=== PATIENT | female | born 2000 | race African-American/Black ===

== ENCOUNTER 2022-02-28 12:47 | Inpatient (IN) | payer OTHER, MEDICAID, SELFPAY ==
[2022-02-28] VITALS (16 sets, daily range): BP systolic 96–123; BP diastolic 57–80; PULSE 89–131; RESP 9–20; TEMP 36.2–36.8; O2SAT 97–99; BMI 22.8; BMI 23.4
[2022-02-28 13:51] LABS: Add Manual Diff / Slide Review NO; Basophils Absolute Auto 0 /uL (0-100); Basophils Percent Auto 0.3 % (0-2); Eosinophils Absolute Auto 0 /uL (0-450); Eosinophils Percent Auto 0.2 % (2-4); Hematocrit 25.2 % (36-46); Hemoglobin 8.1 g/dL (12.0-16.0); Lymphocytes Absolute Auto 2200 /uL (1100-4500); Lymphocytes Percent Auto 20.3 % (25-40); Mean Corpuscular HGB Conc 32.3 % (30-36); Mean Corpuscular Hemoglobin 23.9 PG (26-34); Monocytes Absolute Auto 1100 /uL (0-900); Monocytes Percent Auto 10.6 % (3-14); Neutrophils Absolute Auto 7300 /uL (1500-7000); Neutrophils Percent Auto 68.6 % (50-75); Platelet Count 489 X10^3/uL (150-400); Red Blood Cell Count 3.41 X10^6/uL (4.0-5.2); Red Cell Distribution Width 17.7 % (11.6-14.8); White Blood Cell Count 10.7 X10^3/uL (4.5-11.0)
[2022-02-28 14:03] LABS: INR 1.2 (0.9-1.3)
[2022-02-28 14:05] LABS: PTT Partial Thromboplastin Tim 22 SECONDS (26-36)
[2022-02-28 14:07] LABS: Alanine Aminotransferase 13 IU/L (<35); Albumin 3.4 g/dL (3.5-5.0); Albumin Globulin Ratio 0.7 (1.0-2.8); Alkaline Phosphatase 61 U/L (38-126); Aspartate Aminotransferase 18 IU/L (14-36); BUN Creatinine Ratio 9.4 (6-22); Bilirubin Total 0.3 mg/dL (0.2-1.3); Blood Urea Nitrogen 5 mg/dL (7-17); Calcium 8.5 mg/dL (8.4-10.2); Carbon Dioxide 27 mmol/L (22-32); Chloride 104 mmol/L (98-107); Estimated Glomerular Filt Rate > 60 mL/min (>60); Globulin 4.8 g/dL (1.7-4.1); Glucose 97 mg/dL (70-100); HEMOLYSIS < 15 (0-50); Potassium 3.7 mmol/L (3.4-5.1); Sodium 140 mmol/L (137-145); Total Protein 8.2 g/dL (6.3-8.2)
--- NOTE | 2022-02-28 14:34 | PC.NURSE ---
pt states she has history of ulcerative colitis. she was at [facility] 2 days ago and was given a blood transfusion and steriods. she states since then she has been getting worse. still has bright red blood and dark red blood in stool. she states i have lost over 10lbs in the last few days i still go to the bathroom even when i dont eat nothing makes this better.
--- NOTE | 2022-02-28 14:53 | DI.CT.S_ITS ---
PROCEDURE: CT ABDOMEN PELVIS W CON INDICATIONS: rectal bleeding; hx UC TECHNIQUE: After the administration of IV contrast, axial sections were acquired from the lung bases to the pubic symphysis. Coronal and sagittal reformats were performed. For radiation dose reduction, the following was used: automated exposure control, adjustment of mA and/or kV according to patient size. COMPARISON: None. FINDINGS: Image quality: Portions of the lower pelvis are suboptimally evaluated secondary to metallic streak artifact from bilateral femoral fixation hardware. Lung bases: Unremarkable. Heart: No significant findings. ABDOMEN: Liver: Liver is enlarged measuring 20.1 cm. Gallbladder: Unremarkable. Biliary ducts: Unremarkable. Pancreas: Unremarkable. Spleen: Unremarkable. Adrenal Glands: Unremarkable. Kidneys and Ureters: Unremarkable. Stomach and Bowel: Stomach, small bowel loops, and colon are nonobstructive. Colon demonstrates diffuse thickening within the distal transverse and most notable descending and sigmoid colon. Pericolonic inflammatory changes present. No visualized diverticula. Mild dependent fluid. Ventral Wall: Fat containing ventral hernia. Abdominal Nodes: No retroperitoneal or mesenteric adenopathy by size criteria. Vessels: Aorta and inferior vena cava are normal in size. PELVIS: Pelvic Organs: Unremarkable. Bladder: Unremarkable. Pelvic Nodes: No enlarged lymph nodes. Miscellaneous: No inguinal hernias are seen. Bones: Unremarkable. IMPRESSION: Left colonic colitis secondary to infection/inflammation or potentially ischemia. No associated abscess. Dictated by: Sheryl Mabry M.D. on 02/28/2022 at 16:30 Approved by: Sheryl Mabry M.D. on 02/28/2022 at 16:33
[2022-02-28] MEDS: MORPHINE 4 MG/ML INJ IV ×2 (15:03→19:54)
--- NOTE | 2022-02-28 16:13 | CM.SWNOTE ---
Pt is 21 year old female with hx of ulcerative colitis who presents with GI bleed. Pt has Medicaid and no PCP. SW was consulted to help pt establish PCP. RONNA found closest available [facility] is in [facility]. RONNA scheduled pt with Dr. Summer Rae on Thursday, March 10 at 10:45am. RONNA provided pt with contact information, address, and appointment information. Pt is agreeable to see this PCP. GROVER Booker
--- NOTE | 2022-02-28 17:03 | ED.GIBLEED ---
HPI - GI Bleed <Daniel Mcguire PA-C - Last Filed: 02/28/22 19:37> General Chief complaint: GI Bleed Stated complaint: blood in stools sent [facility] Time Seen by Provider: 02/28/22 14:24 Source: patient Mode of arrival: Ambulatory History of Present Illness HPI Narrative: 21-year-old female with past medical history ulcerative colitis presents to the ED with 1 week of worsening lower abdominal pain, rectal bleed. Patient states she was diagnosed with ulcerative colitis about 3 years ago, did not receive any treatment for it since it was not severe enough. Patient states that she started experiencing rectal bleeding, lower abdominal pain, pain with defecation 1 week ago. Patient was seen at the [facility] emergency department 2 days ago, received a transfusion due to low hemoglobin, was started on a prednisone taper and discharged home. Patient states that her symptoms have worsened over the last 2 days despite taking the prednisone. Patient denies fever, chills, nausea, vomiting, chest pain, shortness of breath, dysuria, lightheadedness, dizziness, syncope. Related Data Home Medications Medication Instructions Recorded Confirmed ferrous sulfate 325 mg (65 mg 325 mg PO DAILY 02/28/22 02/28/22 iron) tablet (FeroSul) Previous Rx's Medication Instructions Recorded mesalamine 1.2 gram tablet,delayed 2.4 g PO DAILY 4 weeks #60 tabs 03/05/22 release (Lialda) oxycodone 10 mg tablet 10 mg PO Q4H PRN Pain, Severe 03/05/22 (7-10) #30 tabs pantoprazole 40 mg tablet,delayed 40 mg PO DAILY #30 tabs 03/05/22 release (Protonix) prednisone 20 mg tablet See Rx Instructions .Route 03/05/22 .COMPLEX #90 tabs Allergies Allergy/AdvReac Type Severity Reaction Status Date / Time ethinyl estradiol AdvReac Intermediate Swelling Verified 03/01/22 14:11 [From Loestrin 1.5 (21)] of Lip/Tongue/Throat norethindrone acetate AdvReac Intermediate Swelling Verified 03/01/22 14:11 [From Loestrin 1.5/30 (21)] of Lip/Tongue/Throat Review of Systems <Daniel Mcguire PA-C - Last Filed: 02/28/22 19:37> Review of Systems ROS Unobtainable: All systems reviewed & are unremarkable except as noted in HPI and below Constitutional Constitutional: Denies chills, Denies fatigue, Denies fever(s), Denies frequent falls, Denies lethargy and Denies weakness Eyes Eyes: Denies change in vision, Denies eye discharge, Denies irritation and Denies loss of vision ENT Ears, Nose, Mouth, and Throat: Denies change in voice, Denies dizziness, Denies neck pain, Denies sore throat and Denies throat swelling Cardiovascular Cardiovascular: Denies chest pain, Denies irregular heart rhythm, Denies lightheadedness, Denies palpitations, Denies dyspnea, Denies dyspnea on exertion and Denies orthopnea Respiratory Respiratory: Denies cough, Denies dyspnea, Denies dyspnea on exertion and Denies wheezing Gastrointestinal Gastrointestinal: Reports abdominal pain, Reports hematochezia, Denies change in bowel habits, Reports cramping, Denies diarrhea, Denies nausea and Denies vomiting Genitourinary Genitourinary: Denies hematuria, Denies flank pain, Denies urinary incontinence and Denies urinary urgency Musculoskeletal Musculoskeletal: Denies back pain, Denies muscle weakness, Denies neck pain, Denies numbness and Denies tingling Integumentary/Breasts Skin/Breast: Denies pruritus, Denies erythema, Denies rash and Denies wounds Neurologic Neurologic: Denies behavioral changes, Denies confusion, Denies dizziness, Denies frequent falls, Denies loss of vision, Denies numbness, Denies tingling and Denies weakness Psychiatric Psychiatric: Denies anxiety, Denies behavioral changes, Denies confusion, Denies depression, Denies homicidal ideation and Denies suicidal ideation Endocrine Endocrine: Denies fatigue, Denies flushing and Denies palpitations Hematologic/Lymphatic Hematologic/Lymphatic: Denies easy bruising Allergic/Immunologic Allergic/Immunologic: Denies urticaria, Denies throat swelling and Denies wheezing Patient History <Daniel Mcguire PA-C - Last Filed: 02/28/22 19:37> Medical History (Updated 03/01/22 @ 13:27 by Glory Zepeda MD) Anemia Ulcerative colitis Surgical History (Updated 02/28/22 @ 20:08 by Bry Tamayo MD) History of hip surgery Family History (Updated 02/28/22 @ 20:08 by Bry Tamayo MD) Mother Diabetes mellitus Father Brain aneurysm Social History household members: family and children Smoking Status: Current every day smoker alcohol intake: current Smoking Status: Current every day smoker tobacco type: vaping alcohol intake frequency: holidays/special occasions only Substance Use Type: marijuana Exam <Daniel Mcguire PA-C - Last Filed: 02/28/22 19:37> Narrative Exam Narrative: Const General:?cooperative, healthy appearing and comfortable [facility] Head:?normal to inspection Ears:?hearing grossly normal bilaterally Nose:?external nose normal Face and sinus:?normal facial exam and sinuses nontender Mouth:?oral mucosae normal Throat:?posterior oropharynx normal Eyes General:?appearance normal, both eyes and all related structures Neck Neck:?normal visual inspection and no lymphadenopathy noted Resp Effort & Inspection:?normal respiratory effort Auscultation:?clear to auscultation bilaterally Cardio Rate:?regular rate Rhythm:?regular rhythm GI Abdomen is soft, nondistended. Abdomen is tender to palpation in the lower quadrants. Neuro General:?patient alert, patient awake and patient oriented x3 Initial Vital Signs Initial Vital Signs: Vital Signs Temperature 97.1 F L 02/28/22 13:00 Pulse Rate 131 H 02/28/22 13:00 Respiratory Rate 14 02/28/22 13:00 Blood Pressure 119/72 02/28/22 13:00 Pulse Oximetry 99 02/28/22 13:00 Oxygen Delivery Method 02/28/22 13:00 <Simeon Vergara MD - Last Filed: 03/06/22 09:59> Initial Vital Signs Initial Vital Signs: Vital Signs Temperature 97.1 F L 02/28/22 13:00 Pulse Rate 131 H 02/28/22 13:00 Respiratory Rate 14 02/28/22 13:00 Blood Pressure 119/72 02/28/22 13:00 Pulse Oximetry 99 02/28/22 13:00 Oxygen Delivery Method 02/28/22 13:00 Course <Daniel Mcguire PA-C - Last Filed: 02/28/22 19:37> Orders Ordered: Discontinued Medications Acetaminophen (Acetaminophen 325 Mg Tablet) 975 mg PO NOW ONE Stop: 02/28/22 17:12 Last Admin: 02/28/22 17:36 Dose: 975 mg Documented By: MITCH Acetaminophen (Acetaminophen 325 Mg Tablet) 975 mg PO Q6H [facility] Last Admin: 03/02/22 19:53 Dose: 975 mg Documented By: Admin: 03/02/22 13:05 Dose: 975 mg Documented By: Admin: 03/02/22 08:53 Dose: 975 mg Documented By: Admin: 03/02/22 01:33 Dose: Not Given Documented By: Admin: 03/01/22 19:42 Dose: 975 mg Documented By: Admin: 03/01/22 14:11 Dose: 975 mg Documented By: BOYD Acetaminophen (Acetaminophen 325 Mg Tablet) 975 mg PO Q8H [facility] Last Admin: 03/05/22 06:09 Dose: Not Given Documented By: Admin: 03/04/22 20:17 Dose: Not Given Documented By: Admin: 03/04/22 13:07 Dose: Not Given Documented By: Admin: 03/04/22 05:00 Dose: 975 mg Documented By: Admin: 03/03/22 17:35 Dose: 975 mg Documented By: Admin: 03/03/22 14:01 Dose: Not Given Documented By: Admin: 03/03/22 03:50 Dose: 975 mg Documented By: RASHMI Hydrocodone Bitart/Acetaminophen (Hydrocodone/Acet 5/325 Tablet) 1 tab PO Q4H PRN PRN Reason: Pain, Moderate (4-6) Last Admin: 03/01/22 08:03 Dose: 1 tab Documented By: Admin: 03/01/22 03:15 Dose: 1 tab Documented By: NESHA Diphenhydramine HCl (Diphenhydramine 50 Mg/Ml Vial) 25 mg IV BEDTIME PRN PRN Reason: Insomnia Last Admin: 03/04/22 20:16 Dose: 25 mg Documented By: ZACHARY Enoxaparin Sodium (Enoxaparin 40 Mg/0.4 Ml Syringe) 40 mg SUBCUT DAILY [facility] Last Admin: 03/05/22 09:26 Dose: Not Given Documented By: Admin: 03/04/22 08:40 Dose: 40 mg Documented By: Admin: 03/03/22 14:01 Dose: 40 mg Documented By: LDV Ferrous Sulfate (Ferrous Sulfate 325 Mg Tablet) 325 mg PO DAILY [facility] Last Admin: 03/05/22 09:24 Dose: 325 mg Documented By: Admin: 03/04/22 08:40 Dose: 325 mg Documented By: Admin: 03/03/22 09:58 Dose: 325 mg Documented By: Admin: 03/02/22 08:54 Dose: 325 mg Documented By: Admin: 03/01/22 10:19 Dose: 325 mg Documented By: BOYD Hydromorphone HCl (Hydromorphone 0.5 Mg Inj) 0.5 mg IV Q4H PRN PRN Reason: Pain, Moderate (4-6) Last Admin: 03/03/22 23:24 Dose: 0.5 mg Documented By: Admin: 03/03/22 14:02 Dose: 0.5 mg Documented By: Admin: 03/02/22 13:04 Dose: 0.5 mg Documented By: Admin: 03/02/22 08:53 Dose: 0.5 mg Documented By: Admin: 03/01/22 14:12 Dose: 0.5 mg Documented By: BOYD Hydromorphone HCl (Hydromorphone 1 Mg Inj) 1 mg IV Q4H PRN PRN Reason: Pain, Severe (7-10) Last Admin: 03/02/22 23:48 Dose: 1 mg Documented By: RASHMI Piperacillin Sod/Tazobactam (Sod 4.5 gm/ Sodium Chloride) 100 mls @ 200 mls/hr IV NOW ONE Stop: 02/28/22 19:17 Last Infusion: 02/28/22 21:05 Dose: 0 mls/hr Documented By: Admin: 02/28/22 19:54 Dose: 200 mls/hr Documented By: SILVESTRE Dextrose/Sodium Chloride (Dextrose 5%-0.9% Ns) 1,000 mls @ 100 mls/hr IV CONT [facility] Last Admin: 03/01/22 08:19 Dose: 100 mls/hr Documented By: Infusion: 03/01/22 08:19 Dose: 100 mls/hr Documented By: Admin: 02/28/22 22:20 Dose: 100 mls/hr Documented By: NESHA Piperacillin Sod/Tazobactam (Sod 3.375 gm/ Sodium Chloride) 100 mls @ 25 mls/hr IV Q8H [facility] Last Infusion: 03/02/22 10:32 Dose: 0 mls/hr Documented By: Admin: 03/02/22 08:55 Dose: 25 mls/hr Documented By: Infusion: 03/02/22 04:33 Dose: 0 mls/hr Documented By: Admin: 03/01/22 23:59 Dose: 25 mls/hr Documented By: Infusion: 03/01/22 20:46 Dose: 25 mls/hr Documented By: Admin: 03/01/22 16:46 Dose: 25 mls/hr Documented By: Infusion: 03/01/22 15:16 Dose: 0 mls/hr Documented By: Admin: 03/01/22 08:03 Dose: 150 mls/hr Documented By: Infusion: 03/01/22 04:49 Dose: 0 mls/hr Documented By: Admin: 03/01/22 00:36 Dose: 25 mls/hr Documented By: NESHA Sodium Chloride (Normal Saline 0.9%) 1,000 mls @ 100 mls/hr IV CONT [facility] Last Admin: 03/01/22 14:22 Dose: 100 mls/hr Documented By: BOYD Lorazepam (Lorazepam 0.5 Mg Tablet) 0.5 mg PO Q4HR PRN PRN Reason: Anxiety Last Admin: 03/04/22 20:02 Dose: 0.5 mg Documented By: Admin: 03/02/22 23:58 Dose: 0.5 mg Documented By: Admin: 03/02/22 08:54 Dose: 0.5 mg Documented By: Admin: 03/01/22 14:12 Dose: 0.5 mg Documented By: BOYD Mesalamine (Mesalamine 800 Mg Tablet.Dr) 1,600 mg PO TID [facility] Last Admin: 03/05/22 09:24 Dose: 1,600 mg Documented By: Admin: 03/04/22 20:03 Dose: 1,600 mg Documented By: Admin: 03/04/22 16:40 Dose: 1,600 mg Documented By: Admin: 03/04/22 08:40 Dose: 1,600 mg Documented By: Admin: 03/03/22 21:04 Dose: 1,600 mg Documented By: Admin: 03/03/22 16:33 Dose: 1,600 mg Documented By: Admin: 03/03/22 09:58 Dose: 1,600 mg Documented By: Admin: 03/02/22 23:46 Dose: 1,600 mg Documented By: Admin: 03/02/22 18:09 Dose: 1,600 mg Documented By: BV Methylprednisolone (Methylprednisolone 125 Mg/2 Ml Vial) 60 mg IV Q6H [facility] Last Admin: 03/01/22 14:12 Dose: 60 mg Documented By: Admin: 03/01/22 08:26 Dose: 60 mg Documented By: Admin: 03/01/22 03:15 Dose: 60 mg Documented By: Admin: 02/28/22 21:42 Dose: 60 mg Documented By: SILVESTRE Methylprednisolone (Methylprednisolone 125 Mg/2 Ml Vial) 20 mg IV Q8H [facility] Last Admin: 03/02/22 09:00 Dose: 20 mg Documented By: Admin: 03/01/22 22:50 Dose: 20 mg Documented By: Admin: 03/01/22 16:46 Dose: 20 mg Documented By: BOYD Methylprednisolone (Methylprednisolone 125 Mg/2 Ml Vial) 125 mg IV Q6H [facility] Last Admin: 03/03/22 14:00 Dose: 125 mg Documented By: Admin: 03/03/22 05:46 Dose: 125 mg Documented By: Admin: 03/02/22 23:46 Dose: 125 mg Documented By: Admin: 03/02/22 18:13 Dose: 125 mg Documented By: BOYD Methylprednisolone (Methylprednisolone 125 Mg/2 Ml Vial) 105 mg IV NOW ONE Stop: 03/02/22 14:27 Last Admin: 03/02/22 18:28 Dose: Not Given Documented By: Admin: 03/02/22 17:58 Dose: Not Given Documented By: BOYD Methylprednisolone (Methylprednisolone 125 Mg/2 Ml Vial) 125 mg IV Q8H [facility] Last Admin: 03/05/22 00:49 Dose: 125 mg Documented By: Admin: 03/04/22 16:40 Dose: 125 mg Documented By: Admin: 03/04/22 08:40 Dose: 125 mg Documented By: Admin: 03/04/22 01:17 Dose: 125 mg Documented By: Admin: 03/03/22 17:35 Dose: 125 mg Documented By: LAY Methylprednisolone (Methylprednisolone 125 Mg/2 Ml Vial) 125 mg IV BID [facility] Last Admin: 03/05/22 09:25 Dose: 125 mg Documented By: MESSI Morphine Sulfate (Morphine 4 Mg/Ml Inj) 4 mg IV NOW ONE Stop: 02/28/22 14:53 Last Admin: 02/28/22 15:03 Dose: 4 mg Documented By: NR Morphine Sulfate (Morphine 4 Mg/Ml Inj) 4 mg IV NOW ONE Stop: 02/28/22 19:33 Last Admin: 02/28/22 19:54 Dose: 4 mg Documented By: SILVESTRE Naloxone HCl (Naloxone 0.4 Mg/Ml Vial) 0.2 mg IV Q2MIN PRN PRN Reason: Opiate Reversal Naloxone HCl (Naloxone 0.4 Mg/Ml Vial) 0.2 mg IV Q2MIN PRN PRN Reason: Opiate Reversal Ondansetron HCl (Ondansetron 4 Mg/2 Ml Inj) 4 mg IV NOW PRN PRN Reason: Nausea And Vomiting Last Admin: 03/03/22 07:46 Dose: 4 mg Documented By: LAY Oxycodone HCl (Oxycodone Ir 5 Mg Tablet) 5 mg PO Q3H PRN PRN Reason: Pain, Moderate (4-6) Last Admin: 03/03/22 09:58 Dose: 5 mg Documented By: LAY Oxycodone HCl (Oxycodone Ir 10 Mg Tablet) 10 mg PO Q3H PRN PRN Reason: Pain, Severe (7-10) Last Admin: 03/05/22 00:49 Dose: 10 mg Documented By: Admin: 03/04/22 06:49 Dose: 10 mg Documented By: Admin: 03/03/22 21:06 Dose: 10 mg Documented By: Admin: 03/03/22 05:51 Dose: 10 mg Documented By: Admin: 03/02/22 18:14 Dose: 10 mg Documented By: Admin: 03/02/22 04:36 Dose: 10 mg Documented By: Admin: 03/01/22 19:42 Dose: 10 mg Documented By: OW Pantoprazole Sodium (Pantoprazole 40 Mg Vial) 80 mg IV NOW ONE Stop: 02/28/22 13:08 Last Admin: 02/28/22 15:07 Dose: Not Given Documented By: NR Sodium Chloride (Sodium Chloride 0.9% Flush) 10 ml IV PRN PRN PRN Reason: Flush Last Admin: 03/04/22 01:17 Dose: 10 ml Documented By: Admin: 03/03/22 23:29 Dose: 10 ml Documented By: Admin: 03/03/22 05:46 Dose: 10 ml Documented By: RASHMI Sodium Chloride (Sodium Chloride 0.9% Flush) 10 ml IV BID [facility] Last Admin: 03/05/22 09:25 Dose: 10 ml Documented By: Admin: 03/04/22 20:17 Dose: 10 ml Documented By: Admin: 03/04/22 08:41 Dose: 10 ml Documented By: Admin: 03/03/22 21:04 Dose: 10 ml Documented By: Admin: 03/03/22 09:50 Dose: Not Given Documented By: Admin: 03/02/22 23:47 Dose: 10 ml Documented By: RASHMI Vital Signs Vital signs: Vital Signs - 8 hr 02/28/22 13:00 02/28/22 13:34 02/28/22 13:35 Temperature 97.1 F L Pulse Rate 131 H 95 H Respiratory Rate 14 17 Blood Pressure 119/72 111/71 Pulse Oximetry 99 98 Oxygen Delivery Method Room Air 02/28/22 13:35 02/28/22 13:45 02/28/22 14:00 Temperature Pulse Rate 97 H 96 H Respiratory Rate 14 20 Blood Pressure 96/59 L Pulse Oximetry 98 98 Oxygen Delivery Method 02/28/22 14:00 02/28/22 14:15 02/28/22 14:30 Temperature Pulse Rate 93 H 97 H Respiratory Rate 14 17 Blood Pressure 96/57 L Pulse Oximetry 98 98 Oxygen Delivery Method 02/28/22 14:30 02/28/22 14:45 02/28/22 15:00 Temperature Pulse Rate 97 H 98 H Respiratory Rate 13 15 Blood Pressure 123/62 Pulse Oximetry 97 99 Oxygen Delivery Method 02/28/22 15:00 02/28/22 15:15 02/28/22 15:30 Temperature Pulse Rate 89 97 H Respiratory Rate 9 L 19 Blood Pressure 111/78 Pulse Oximetry 99 97 Oxygen Delivery Method Room Air 02/28/22 15:30 02/28/22 15:45 02/28/22 16:00 Temperature Pulse Rate 95 H 92 H 93 H Respiratory Rate 9 L 13 13 Blood Pressure Pulse Oximetry 99 99 99 Oxygen Delivery Method 02/28/22 16:15 02/28/22 16:47 Temperature Pulse Rate 90 93 H Respiratory Rate 13 18 Blood Pressure 111/78 Pulse Oximetry 98 99 Oxygen Delivery Method Room Air Room Air <Simeon Vergara MD - Last Filed: 03/06/22 09:59> Orders Ordered: Discontinued Medications Acetaminophen (Acetaminophen 325 Mg Tablet) 975 mg PO NOW ONE Stop: 02/28/22 17:12 Last Admin: 02/28/22 17:36 Dose: 975 mg Documented By: MITCH Acetaminophen (Acetaminophen 325 Mg Tablet) 975 mg PO Q6H [facility] Last Admin: 03/02/22 19:53 Dose: 975 mg Documented By: Admin: 03/02/22 13:05 Dose: 975 mg Documented By: Admin: 03/02/22 08:53 Dose: 975 mg Documented By: Admin: 03/02/22 01:33 Dose: Not Given Documented By: Admin: 03/01/22 19:42 Dose: 975 mg Documented By: Admin: 03/01/22 14:11 Dose: 975 mg Documented By: BOYD Acetaminophen (Acetaminophen 325 Mg Tablet) 975 mg PO Q8H [facility] Last Admin: 03/05/22 06:09 Dose: Not Given Documented By: Admin: 03/04/22 20:17 Dose: Not Given Documented By: Admin: 03/04/22 13:07 Dose: Not Given Documented By: Admin: 03/04/22 05:00 Dose: 975 mg Documented By: Admin: 03/03/22 17:35 Dose: 975 mg Documented By: Admin: 03/03/22 14:01 Dose: Not Given Documented By: Admin: 03/03/22 03:50 Dose: 975 mg Documented By: RASHMI Hydrocodone Bitart/Acetaminophen (Hydrocodone/Acet 5/325 Tablet) 1 tab PO Q4H PRN PRN Reason: Pain, Moderate (4-6) Last Admin: 03/01/22 08:03 Dose: 1 tab Documented By: Admin: 03/01/22 03:15 Dose: 1 tab Documented By: NESHA Diphenhydramine HCl (Diphenhydramine 50 Mg/Ml Vial) 25 mg IV BEDTIME PRN PRN Reason: Insomnia Last Admin: 03/04/22 20:16 Dose: 25 mg Documented By: ZACHARY Enoxaparin Sodium (Enoxaparin 40 Mg/0.4 Ml Syringe) 40 mg SUBCUT DAILY [facility] Last Admin: 03/05/22 09:26 Dose: Not Given Documented By: Admin: 03/04/22 08:40 Dose: 40 mg Documented By: Admin: 03/03/22 14:01 Dose: 40 mg Documented By: LAY Ferrous Sulfate (Ferrous Sulfate 325 Mg Tablet) 325 mg PO DAILY [facility] Last Admin: 03/05/22 09:24 Dose: 325 mg Documented By: Admin: 03/04/22 08:40 Dose: 325 mg Documented By: Admin: 03/03/22 09:58 Dose: 325 mg Documented By: Admin: 03/02/22 08:54 Dose: 325 mg Documented By: Admin: 03/01/22 10:19 Dose: 325 mg Documented By: BOYD Hydromorphone HCl (Hydromorphone 0.5 Mg Inj) 0.5 mg IV Q4H PRN PRN Reason: Pain, Moderate (4-6) Last Admin: 03/03/22 23:24 Dose: 0.5 mg Documented By: Admin: 03/03/22 14:02 Dose: 0.5 mg Documented By: Admin: 03/02/22 13:04 Dose: 0.5 mg Documented By: Admin: 03/02/22 08:53 Dose: 0.5 mg Documented By: Admin: 03/01/22 14:12 Dose: 0.5 mg Documented By: BOYD Hydromorphone HCl (Hydromorphone 1 Mg Inj) 1 mg IV Q4H PRN PRN Reason: Pain, Severe (7-10) Last Admin: 03/02/22 23:48 Dose: 1 mg Documented By: RASHMI Piperacillin Sod/Tazobactam (Sod 4.5 gm/ Sodium Chloride) 100 mls @ 200 mls/hr IV NOW ONE Stop: 02/28/22 19:17 Last Infusion: 02/28/22 21:05 Dose: 0 mls/hr Documented By: Admin: 02/28/22 19:54 Dose: 200 mls/hr Documented By: SILVESTRE Dextrose/Sodium Chloride (Dextrose 5%-0.9% Ns) 1,000 mls @ 100 mls/hr IV CONT [facility] Last Admin: 03/01/22 08:19 Dose: 100 mls/hr Documented By: Infusion: 03/01/22 08:19 Dose: 100 mls/hr Documented By: Admin: 02/28/22 22:20 Dose: 100 mls/hr Documented By: NESHA Piperacillin Sod/Tazobactam (Sod 3.375 gm/ Sodium Chloride) 100 mls @ 25 mls/hr IV Q8H [facility] Last Infusion: 03/02/22 10:32 Dose: 0 mls/hr Documented By: Admin: 03/02/22 08:55 Dose: 25 mls/hr Documented By: Infusion: 03/02/22 04:33 Dose: 0 mls/hr Documented By: Admin: 03/01/22 23:59 Dose: 25 mls/hr Documented By: Infusion: 03/01/22 20:46 Dose: 25 mls/hr Documented By: Admin: 03/01/22 16:46 Dose: 25 mls/hr Documented By: Infusion: 03/01/22 15:16 Dose: 0 mls/hr Documented By: Admin: 03/01/22 08:03 Dose: 150 mls/hr Documented By: Infusion: 03/01/22 04:49 Dose: 0 mls/hr Documented By: Admin: 03/01/22 00:36 Dose: 25 mls/hr Documented By: NESHA Sodium Chloride (Normal Saline 0.9%) 1,000 mls @ 100 mls/hr IV CONT [facility] Last Admin: 03/01/22 14:22 Dose: 100 mls/hr Documented By: BOYD Lorazepam (Lorazepam 0.5 Mg Tablet) 0.5 mg PO Q4HR PRN PRN Reason: Anxiety Last Admin: 03/04/22 20:02 Dose: 0.5 mg Documented By: Admin: 03/02/22 23:58 Dose: 0.5 mg Documented By: Admin: 03/02/22 08:54 Dose: 0.5 mg Documented By: Admin: 03/01/22 14:12 Dose: 0.5 mg Documented By: BOYD Mesalamine (Mesalamine 800 Mg Tablet.Dr) 1,600 mg PO TID [facility] Last Admin: 03/05/22 09:24 Dose: 1,600 mg Documented By: Admin: 03/04/22 20:03 Dose: 1,600 mg Documented By: Admin: 03/04/22 16:40 Dose: 1,600 mg Documented By: Admin: 03/04/22 08:40 Dose: 1,600 mg Documented By: Admin: 03/03/22 21:04 Dose: 1,600 mg Documented By: Admin: 03/03/22 16:33 Dose: 1,600 mg Documented By: Admin: 03/03/22 09:58 Dose: 1,600 mg Documented By: Admin: 03/02/22 23:46 Dose: 1,600 mg Documented By: Admin: 03/02/22 18:09 Dose: 1,600 mg Documented By: BOYD Methylprednisolone (Methylprednisolone 125 Mg/2 Ml Vial) 60 mg IV Q6H [facility] Last Admin: 03/01/22 14:12 Dose: 60 mg Documented By: Admin: 03/01/22 08:26 Dose: 60 mg Documented By: Admin: 03/01/22 03:15 Dose: 60 mg Documented By: Admin: 02/28/22 21:42 Dose: 60 mg Documented By: SILVESTRE Methylprednisolone (Methylprednisolone 125 Mg/2 Ml Vial) 20 mg IV Q8H [facility] Last Admin: 03/02/22 09:00 Dose: 20 mg Documented By: Admin: 03/01/22 22:50 Dose: 20 mg Documented By: Admin: 03/01/22 16:46 Dose: 20 mg Documented By: BOYD Methylprednisolone (Methylprednisolone 125 Mg/2 Ml Vial) 125 mg IV Q6H [facility] Last Admin: 03/03/22 14:00 Dose: 125 mg Documented By: Admin: 03/03/22 05:46 Dose: 125 mg Documented By: Admin: 03/02/22 23:46 Dose: 125 mg Documented By: Admin: 03/02/22 18:13 Dose: 125 mg Documented By: BOYD Methylprednisolone (Methylprednisolone 125 Mg/2 Ml Vial) 105 mg IV NOW ONE Stop: 03/02/22 14:27 Last Admin: 03/02/22 18:28 Dose: Not Given Documented By: Admin: 03/02/22 17:58 Dose: Not Given Documented By: BOYD Methylprednisolone (Methylprednisolone 125 Mg/2 Ml Vial) 125 mg IV Q8H [facility] Last Admin: 03/05/22 00:49 Dose: 125 mg Documented By: Admin: 03/04/22 16:40 Dose: 125 mg Documented By: Admin: 03/04/22 08:40 Dose: 125 mg Documented By: Admin: 03/04/22 01:17 Dose: 125 mg Documented By: Admin: 03/03/22 17:35 Dose: 125 mg Documented By: LDV Methylprednisolone (Methylprednisolone 125 Mg/2 Ml Vial) 125 mg IV BID [facility] Last Admin: 03/05/22 09:25 Dose: 125 mg Documented By: MESSI Morphine Sulfate (Morphine 4 Mg/Ml Inj) 4 mg IV NOW ONE Stop: 02/28/22 14:53 Last Admin: 02/28/22 15:03 Dose: 4 mg Documented By: MITCH Morphine Sulfate (Morphine 4 Mg/Ml Inj) 4 mg IV NOW ONE Stop: 02/28/22 19:33 Last Admin: 02/28/22 19:54 Dose: 4 mg Documented By: SILVESTRE Naloxone HCl (Naloxone 0.4 Mg/Ml Vial) 0.2 mg IV Q2MIN PRN PRN Reason: Opiate Reversal Naloxone HCl (Naloxone 0.4 Mg/Ml Vial) 0.2 mg IV Q2MIN PRN PRN Reason: Opiate Reversal Ondansetron HCl (Ondansetron 4 Mg/2 Ml Inj) 4 mg IV NOW PRN PRN Reason: Nausea And Vomiting Last Admin: 03/03/22 07:46 Dose: 4 mg Documented By: LAY Oxycodone HCl (Oxycodone Ir 5 Mg Tablet) 5 mg PO Q3H PRN PRN Reason: Pain, Moderate (4-6) Last Admin: 03/03/22 09:58 Dose: 5 mg Documented By: LDV Oxycodone HCl (Oxycodone Ir 10 Mg Tablet) 10 mg PO Q3H PRN PRN Reason: Pain, Severe (7-10) Last Admin: 03/05/22 00:49 Dose: 10 mg Documented By: Admin: 03/04/22 06:49 Dose: 10 mg Documented By: Admin: 03/03/22 21:06 Dose: 10 mg Documented By: Admin: 03/03/22 05:51 Dose: 10 mg Documented By: Admin: 03/02/22 18:14 Dose: 10 mg Documented By: Admin: 03/02/22 04:36 Dose: 10 mg Documented By: Admin: 03/01/22 19:42 Dose: 10 mg Documented By: OW Pantoprazole Sodium (Pantoprazole 40 Mg Vial) 80 mg IV NOW ONE Stop: 02/28/22 13:08 Last Admin: 02/28/22 15:07 Dose: Not Given Documented By: NR Sodium Chloride (Sodium Chloride 0.9% Flush) 10 ml IV PRN PRN PRN Reason: Flush Last Admin: 03/04/22 01:17 Dose: 10 ml Documented By: Admin: 03/03/22 23:29 Dose: 10 ml Documented By: Admin: 03/03/22 05:46 Dose: 10 ml Documented By: RASHMI Sodium Chloride (Sodium Chloride 0.9% Flush) 10 ml IV BID ISAEL Last Admin: 03/05/22 09:25 Dose: 10 ml Documented By: Admin: 03/04/22 20:17 Dose: 10 ml Documented By: Admin: 03/04/22 08:41 Dose: 10 ml Documented By: Admin: 03/03/22 21:04 Dose: 10 ml Documented By: Admin: 03/03/22 09:50 Dose: Not Given Documented By: Admin: 03/02/22 23:47 Dose: 10 ml Documented By: RASHMI Vital Signs Vital signs: Vital Signs - 8 hr 02/28/22 13:00 02/28/22 13:34 02/28/22 13:35 Temperature 97.1 F L Pulse Rate 131 H 95 H Respiratory Rate 14 17 Blood Pressure 119/72 111/71 Pulse Oximetry 99 98 Oxygen Delivery Method Room Air 02/28/22 13:35 02/28/22 13:45 02/28/22 14:00 Temperature Pulse Rate 97 H 96 H Respiratory Rate 14 20 Blood Pressure 96/59 L Pulse Oximetry 98 98 Oxygen Delivery Method 02/28/22 14:00 02/28/22 14:15 02/28/22 14:30 Temperature Pulse Rate 93 H 97 H Respiratory Rate 14 17 Blood Pressure 96/57 L Pulse Oximetry 98 98 Oxygen Delivery Method 02/28/22 14:30 02/28/22 14:45 02/28/22 15:00 Temperature Pulse Rate 97 H 98 H Respiratory Rate 13 15 Blood Pressure 123/62 Pulse Oximetry 97 99 Oxygen Delivery Method 02/28/22 15:00 02/28/22 15:15 02/28/22 15:30 Temperature Pulse Rate 89 97 H Respiratory Rate 9 L 19 Blood Pressure 111/78 Pulse Oximetry 99 97 Oxygen Delivery Method Room Air 02/28/22 15:30 02/28/22 15:45 02/28/22 16:00 Temperature Pulse Rate 95 H 92 H 93 H Respiratory Rate 9 L 13 13 Blood Pressure Pulse Oximetry 99 99 99 Oxygen Delivery Method 02/28/22 16:15 02/28/22 16:47 Temperature Pulse Rate 90 93 H Respiratory Rate 13 18 Blood Pressure 111/78 Pulse Oximetry 98 99 Oxygen Delivery Method Room Air Room Air MDM - GI Bleed <Daniel Mcguire PA-C - Last Filed: 02/28/22 19:37> Lab Data Result diagrams: 03/05/22 06:56 03/04/22 08:36 Labs: Lab Results 02/28/22 02/28/22 02/28/22 Range/Units 13:30 13:30 13:30 WBC 10.7 (4.5-11.0) X10^3/uL RBC 3.41 L (4.0-5.2) X10^6/uL Hgb 8.1 L (12.0-16.0) g/dL Hct 25.2 L (36-46) % MCV 74.0 L (80-100) fL MCH 23.9 L (26-34) PG MCHC 32.3 (30-36) % RDW 17.7 H (11.6-14.8) % Plt Count 489 H (150-400) X10^3/uL Neut % (Auto) 68.6 (50-75) % Lymph % (Auto) 20.3 L (25-40) % [place] % (Auto) 10.6 (3-14) % Eos % (Auto) 0.2 L (2-4) % Baso % (Auto) 0.3 (0-2) % Neut # (Auto) 7300 H (8913-1021) /uL Lymph # (Auto) 2200 (3654-3903) /uL [place] # (Auto) 1100 H (0-900) /uL Eos # (Auto) 0 (0-450) /uL Baso # (Auto) 0 (0-100) /uL PT 14.0 H (10.1-12.7) SECONDS INR 1.2 (0.9-1.3) APTT 22 L (26-36) SECONDS Sodium 140 (137-145) mmol/L Potassium 3.7 (3.4-5.1) mmol/L Chloride 104 (98-107) mmol/L Carbon Dioxide 27 (22-32) mmol/L BUN 5 L (7-17) mg/dL Creatinine 0.53 (0.52-1.04) mg/dL Estimated GFR > 60 (>60) mL/min BUN/Creatinine Ratio 9.4 (6-22) Glucose 97 (70-100) mg/dL Lactate (0.7-2.1) mmol/L Calcium 8.5 (8.4-10.2) mg/dL Total Bilirubin 0.3 (0.2-1.3) mg/dL AST 18 (14-36) IU/L ALT 13 (<35) IU/L Alkaline Phosphatase 61 (38-126) U/L Total Protein 8.2 (6.3-8.2) g/dL Albumin 3.4 L (3.5-5.0) g/dL Globulin 4.8 H (1.7-4.1) g/dL Albumin/Globulin Ratio 0.7 L (1.0-2.8) Urine Color Urine Appearance Urine pH (4.5-8.0) Ur Specific Luck (1.000-1.035) Urine Protein (Negative) Urine Glucose (UA) (Negative) g/dL Urine Ketones (NEGATIVE) Urine Occult Blood (Negative) Urine Nitrate (Negative) Urine Bilirubin (NEGATIVE) Urine Urobilinogen (0.2) E.U./dL Ur Leukocyte Esterase (NEGATIVE) Urine RBC (0-5/HPF) Urine WBC (0-5/HPF) Ur Squamous Epith Cells (0-5/HPF) Urine Bacteria (None) Ur Culture Indicated? SARS-CoV-2 (PCR) (Negative) Blood Type Antibody Screen 02/28/22 02/28/22 02/28/22 Range/Units 13:30 13:30 17:14 WBC (4.5-11.0) X10^3/uL RBC (4.0-5.2) X10^6/uL Hgb (12.0-16.0) g/dL Hct (36-46) % MCV (80-100) fL MCH (26-34) PG MCHC (30-36) % RDW (11.6-14.8) % Plt Count (150-400) X10^3/uL Neut % (Auto) (50-75) % Lymph % (Auto) (25-40) % [place] % (Auto) (3-14) % Eos % (Auto) (2-4) % Baso % (Auto) (0-2) % Neut # (Auto) (9088-2198) /uL Lymph # (Auto) (3896-2221) /uL [place] # (Auto) (0-900) /uL Eos # (Auto) (0-450) /uL Baso # (Auto) (0-100) /uL PT (10.1-12.7) SECONDS INR (0.9-1.3) APTT (26-36) SECONDS Sodium (137-145) mmol/L Potassium (3.4-5.1) mmol/L Chloride (98-107) mmol/L Carbon Dioxide (22-32) mmol/L BUN (7-17) mg/dL Creatinine (0.52-1.04) mg/dL Estimated GFR (>60) mL/min BUN/Creatinine Ratio (6-22) Glucose (70-100) mg/dL Lactate 0.8 (0.7-2.1) mmol/L Calcium (8.4-10.2) mg/dL Total Bilirubin (0.2-1.3) mg/dL AST (14-36) IU/L ALT (<35) IU/L Alkaline Phosphatase (38-126) U/L Total Protein (6.3-8.2) g/dL Albumin (3.5-5.0) g/dL Globulin (1.7-4.1) g/dL Albumin/Globulin Ratio (1.0-2.8) Urine Color Yellow Urine Appearance Clear Urine pH 7.0 (4.5-8.0) Ur Specific Luck <=1.005 (1.000-1.035) Urine Protein Negative (Negative) Urine Glucose (UA) Negative (Negative) g/dL Urine Ketones Negative (NEGATIVE) Urine Occult Blood 1+ H (Negative) Urine Nitrate Negative (Negative) Urine Bilirubin Negative (NEGATIVE) Urine Urobilinogen 0.2 (0.2) E.U./dL Ur Leukocyte Esterase Negative (NEGATIVE) Urine RBC 1-5/hpf (0-5/HPF) Urine WBC 1-5/hpf (0-5/HPF) Ur Squamous Epith Cells 1-5 /hpf (0-5/HPF) Urine Bacteria None seen (None) Ur Culture Indicated? Cult not indicated SARS-CoV-2 (PCR) (Negative) Blood Type A Positive Antibody Screen Negative 02/28/22 Range/Units 19:02 WBC (4.5-11.0) X10^3/uL RBC (4.0-5.2) X10^6/uL Hgb (12.0-16.0) g/dL Hct (36-46) % MCV (80-100) fL MCH (26-34) PG MCHC (30-36) % RDW (11.6-14.8) % Plt Count (150-400) X10^3/uL Neut % (Auto) (50-75) % Lymph % (Auto) (25-40) % [place] % (Auto) (3-14) % Eos % (Auto) (2-4) % Baso % (Auto) (0-2) % Neut # (Auto) (5501-1227) /uL Lymph # (Auto) (7790-5721) /uL [place] # (Auto) (0-900) /uL Eos # (Auto) (0-450) /uL Baso # (Auto) (0-100) /uL PT (10.1-12.7) SECONDS INR (0.9-1.3) APTT (26-36) SECONDS Sodium (137-145) mmol/L Potassium (3.4-5.1) mmol/L Chloride (98-107) mmol/L Carbon Dioxide (22-32) mmol/L BUN (7-17) mg/dL Creatinine (0.52-1.04) mg/dL Estimated GFR (>60) mL/min BUN/Creatinine Ratio (6-22) Glucose (70-100) mg/dL Lactate (0.7-2.1) mmol/L Calcium (8.4-10.2) mg/dL Total Bilirubin (0.2-1.3) mg/dL AST (14-36) IU/L ALT (<35) IU/L Alkaline Phosphatase (38-126) U/L Total Protein (6.3-8.2) g/dL Albumin (3.5-5.0) g/dL Globulin (1.7-4.1) g/dL Albumin/Globulin Ratio (1.0-2.8) Urine Color Urine Appearance Urine pH (4.5-8.0) Ur Specific Luck (1.000-1.035) Urine Protein (Negative) Urine Glucose (UA) (Negative) g/dL Urine Ketones (NEGATIVE) Urine Occult Blood (Negative) Urine Nitrate (Negative) Urine Bilirubin (NEGATIVE) Urine Urobilinogen (0.2) E.U./dL Ur Leukocyte Esterase (NEGATIVE) Urine RBC (0-5/HPF) Urine WBC (0-5/HPF) Ur Squamous Epith Cells (0-5/HPF) Urine Bacteria (None) Ur Culture Indicated? SARS-CoV-2 (PCR) Negative (Negative) Blood Type Antibody Screen Point of Care Testing Test Results Negative Urine Dip Bedside Urine Glucose Negative Bedside Urine Bilirubin - Negative Bedside Urine Ketone - Negative Urine Specific Luck 1.000 Bedside Urine Occult Blood + Bedside Urine pH 7.0 Bedside Urine Protein - Negative Bedside Urine Urobilinogen - Negative Bedside Urine Nitrite - Negative Bedside Urine Leukocytes - Negative Esterase Imaging Data CT scan - abdomen/pelvis: Radiologist's Impression: PROCEDURE:? CT ABDOMEN PELVIS W CON ? INDICATIONS:? rectal bleeding; hx UC ? TECHNIQUE:? After the administration of IV contrast, axial sections were acquired from the lung bases to the pubic symphysis.? Coronal and sagittal reformats were performed.? For radiation dose reduction, the following was used:? automated exposure control, adjustment of mA and/or kV according to patient size. ? COMPARISON:? None. ? FINDINGS:? Image quality:? Portions of the lower pelvis are suboptimally evaluated secondary to metallic streak artifact from bilateral femoral fixation hardware. ? Lung bases:? Unremarkable.? ? Heart:? No significant findings. ? ? ABDOMEN: Liver:? Liver is enlarged measuring 20.1 cm. Gallbladder:? Unremarkable.? ? Biliary ducts:? Unremarkable.? ? Pancreas:? Unremarkable.? ? Spleen:? Unremarkable.? ? Adrenal Glands:? Unremarkable.? ? Kidneys and Ureters:? Unremarkable.? ? ? Stomach and Bowel:? Stomach, small bowel loops, and colon are nonobstructive.? Colon demonstrates diffuse thickening within the distal transverse and most notable descending and sigmoid colon.? Pericolonic inflammatory changes present.? No visualized diverticula. ?Mild dependent fluid. ? Ventral Wall: ? Fat containing ventral hernia.? Abdominal Nodes:? No retroperitoneal or mesenteric adenopathy by size criteria.? Vessels:? Aorta and inferior vena cava are normal in size.? ? PELVIS: Pelvic Organs:? Unremarkable.? ? Bladder:? Unremarkable.? ? Pelvic Nodes: No enlarged lymph nodes.? Miscellaneous: No inguinal hernias are seen. ? ? ? Bones:? Unremarkable.? IMPRESSION:? ? Left colonic colitis secondary to infection/inflammation or potentially ischemia.? No associated abscess. ? ? Dictated by: Sheryl Mabry M.D. on 02/28/2022 at 16:30 ? ? Approved by: hSeryl Mabry M.D. on 02/28/2022 at 16:33 ? MDM Narrative Medical decision making narrative: 21-year-old female with past medical history ulcerative colitis presents to the ED with 1 week of worsening lower abdominal pain, rectal bleed. Concern for UC flare versus anemia versus toxic megacolon versus perforation versus other intra-abdominal emergency. Will obtain labs, lactate, CT abdomen pelvis. Will give morphine for pain. Will reassess. CTAP shows left colonic colitis secondary to infection/inflammation or potentially ischemia.? No associated abscess. Surgery paged. Consulted Dr. Zepeda from surgery, she recommends admit for observation, pain control. He recommends starting Zosyn. Patient is currently NPO, can have clear fluids if her pain is still controlled. Hospitalist Dr. Tamayo was consulted, patient was admitted. Patient started on Zosyn. <Simeon Vergara MD - Last Filed: 03/06/22 09:59> Lab Data Labs: Lab Results 02/28/22 02/28/22 02/28/22 Range/Units 13:30 13:30 13:30 WBC 10.7 (4.5-11.0) X10^3/uL RBC 3.41 L (4.0-5.2) X10^6/uL Hgb 8.1 L (12.0-16.0) g/dL Hct 25.2 L (36-46) % MCV 74.0 L (80-100) fL MCH 23.9 L (26-34) PG MCHC 32.3 (30-36) % RDW 17.7 H (11.6-14.8) % Plt Count 489 H (150-400) X10^3/uL Neut % (Auto) 68.6 (50-75) % Lymph % (Auto) 20.3 L (25-40) % [place] % (Auto) 10.6 (3-14) % Eos % (Auto) 0.2 L (2-4) % Baso % (Auto) 0.3 (0-2) % Neut # (Auto) 7300 H (1039-4353) /uL Lymph # (Auto) 2200 (2346-5505) /uL [place] # (Auto) 1100 H (0-900) /uL Eos # (Auto) 0 (0-450) /uL Baso # (Auto) 0 (0-100) /uL PT 14.0 H (10.1-12.7) SECONDS INR 1.2 (0.9-1.3) APTT 22 L (26-36) SECONDS Sodium 140 (137-145) mmol/L Potassium 3.7 (3.4-5.1) mmol/L Chloride 104 (98-107) mmol/L Carbon Dioxide 27 (22-32) mmol/L BUN 5 L (7-17) mg/dL Creatinine 0.53 (0.52-1.04) mg/dL Estimated GFR > 60 (>60) mL/min BUN/Creatinine Ratio 9.4 (6-22) Glucose 97 (70-100) mg/dL Lactate (0.7-2.1) mmol/L Calcium 8.5 (8.4-10.2) mg/dL Total Bilirubin 0.3 (0.2-1.3) mg/dL AST 18 (14-36) IU/L ALT 13 (<35) IU/L Alkaline Phosphatase 61 (38-126) U/L Total Protein 8.2 (6.3-8.2) g/dL Albumin 3.4 L (3.5-5.0) g/dL Globulin 4.8 H (1.7-4.1) g/dL Albumin/Globulin Ratio 0.7 L (1.0-2.8) Urine Color Urine Appearance Urine pH (4.5-8.0) Ur Specific Luck (1.000-1.035) Urine Protein (Negative) Urine Glucose (UA) (Negative) g/dL Urine Ketones (NEGATIVE) Urine Occult Blood (Negative) Urine Nitrate (Negative) Urine Bilirubin (NEGATIVE) Urine Urobilinogen (0.2) E.U./dL Ur Leukocyte Esterase (NEGATIVE) Urine RBC (0-5/HPF) Urine WBC (0-5/HPF) Ur Squamous Epith Cells (0-5/HPF) Urine Bacteria (None) Ur Culture Indicated? SARS-CoV-2 (PCR) (Negative) Blood Type Antibody Screen 02/28/22 02/28/22 02/28/22 Range/Units 13:30 13:30 17:14 WBC (4.5-11.0) X10^3/uL RBC (4.0-5.2) X10^6/uL Hgb (12.0-16.0) g/dL Hct (36-46) % MCV (80-100) fL MCH (26-34) PG MCHC (30-36) % RDW (11.6-14.8) % Plt Count (150-400) X10^3/uL Neut % (Auto) (50-75) % Lymph % (Auto) (25-40) % [place] % (Auto) (3-14) % Eos % (Auto) (2-4) % Baso % (Auto) (0-2) % Neut # (Auto) (4920-1964) /uL Lymph # (Auto) (6392-9721) /uL [place] # (Auto) (0-900) /uL Eos # (Auto) (0-450) /uL Baso # (Auto) (0-100) /uL PT (10.1-12.7) SECONDS INR (0.9-1.3) APTT (26-36) SECONDS Sodium (137-145) mmol/L Potassium (3.4-5.1) mmol/L Chloride (98-107) mmol/L Carbon Dioxide (22-32) mmol/L BUN (7-17) mg/dL Creatinine (0.52-1.04) mg/dL Estimated GFR (>60) mL/min BUN/Creatinine Ratio (6-22) Glucose (70-100) mg/dL Lactate 0.8 (0.7-2.1) mmol/L Calcium (8.4-10.2) mg/dL Total Bilirubin (0.2-1.3) mg/dL AST (14-36) IU/L ALT (<35) IU/L Alkaline Phosphatase (38-126) U/L Total Protein (6.3-8.2) g/dL Albumin (3.5-5.0) g/dL Globulin (1.7-4.1) g/dL Albumin/Globulin Ratio (1.0-2.8) Urine Color Yellow Urine Appearance Clear Urine pH 7.0 (4.5-8.0) Ur Specific Luck <=1.005 (1.000-1.035) Urine Protein Negative (Negative) Urine Glucose (UA) Negative (Negative) g/dL Urine Ketones Negative (NEGATIVE) Urine Occult Blood 1+ H (Negative) Urine Nitrate Negative (Negative) Urine Bilirubin Negative (NEGATIVE) Urine Urobilinogen 0.2 (0.2) E.U./dL Ur Leukocyte Esterase Negative (NEGATIVE) Urine RBC 1-5/hpf (0-5/HPF) Urine WBC 1-5/hpf (0-5/HPF) Ur Squamous Epith Cells 1-5 /hpf (0-5/HPF) Urine Bacteria None seen (None) Ur Culture Indicated? Cult not indicated SARS-CoV-2 (PCR) (Negative) Blood Type A Positive Antibody Screen Negative 02/28/22 Range/Units 19:02 WBC (4.5-11.0) X10^3/uL RBC (4.0-5.2) X10^6/uL Hgb (12.0-16.0) g/dL Hct (36-46) % MCV (80-100) fL MCH (26-34) PG MCHC (30-36) % RDW (11.6-14.8) % Plt Count (150-400) X10^3/uL Neut % (Auto) (50-75) % Lymph % (Auto) (25-40) % [place] % (Auto) (3-14) % Eos % (Auto) (2-4) % Baso % (Auto) (0-2) % Neut # (Auto) (0939-6948) /uL Lymph # (Auto) (6565-5918) /uL [place] # (Auto) (0-900) /uL Eos # (Auto) (0-450) /uL Baso # (Auto) (0-100) /uL PT (10.1-12.7) SECONDS INR (0.9-1.3) APTT (26-36) SECONDS Sodium (137-145) mmol/L Potassium (3.4-5.1) mmol/L Chloride (98-107) mmol/L Carbon Dioxide (22-32) mmol/L BUN (7-17) mg/dL Creatinine (0.52-1.04) mg/dL Estimated GFR (>60) mL/min BUN/Creatinine Ratio (6-22) Glucose (70-100) mg/dL Lactate (0.7-2.1) mmol/L Calcium (8.4-10.2) mg/dL Total Bilirubin (0.2-1.3) mg/dL AST (14-36) IU/L ALT (<35) IU/L Alkaline Phosphatase (38-126) U/L Total Protein (6.3-8.2) g/dL Albumin (3.5-5.0) g/dL Globulin (1.7-4.1) g/dL Albumin/Globulin Ratio (1.0-2.8) Urine Color Urine Appearance Urine pH (4.5-8.0) Ur Specific Luck (1.000-1.035) Urine Protein (Negative) Urine Glucose (UA) (Negative) g/dL Urine Ketones (NEGATIVE) Urine Occult Blood (Negative) Urine Nitrate (Negative) Urine Bilirubin (NEGATIVE) Urine Urobilinogen (0.2) E.U./dL Ur Leukocyte Esterase (NEGATIVE) Urine RBC (0-5/HPF) Urine WBC (0-5/HPF) Ur Squamous Epith Cells (0-5/HPF) Urine Bacteria (None) Ur Culture Indicated? SARS-CoV-2 (PCR) Negative (Negative) Blood Type Antibody Screen Point of Care Testing Test Results Negative Urine Dip Bedside Urine Glucose Negative Bedside Urine Bilirubin - Negative Bedside Urine Ketone - Negative Urine Specific [place] 1.000 Bedside Urine Occult Blood + Bedside Urine pH 7.0 Bedside Urine Protein - Negative Bedside Urine Urobilinogen - Negative Bedside Urine Nitrite - Negative Bedside Urine Leukocytes - Negative Esterase Discharge Plan Departure Patient Disposition: Admitted As Inpatient Clinical Impression: Rectal bleed Admit Date/Time: 02/28/22 19:34 Admit Provider: Bry Tamayo <Simeon Vergara MD - Last Filed: 03/06/22 09:59> Cosign ED Attending Cosignature Attestation: I was immediately available in the department for consultation. ?This documentation has been reviewed and I agree with assessment and plan. Supervised by Simeon Vergara MD
[2022-02-28 17:13] LABS: Lactate (Lactic Acid) 0.8 mmol/L (0.7-2.1)
[2022-02-28] MEDS: ACETAMINOPHEN 325 MG TABLET 975 MG PO (17:36)
[2022-02-28 18:00] LABS: Appearance Urine UA CLEAR; Bacteria Urine None Seen; Bilirubin Urine UA NEGATIVE (NEGATIVE); Color Urine UA YELLOW; Glucose Urine UA NEGATIVE (Negative); Ketones Urine UA NEGATIVE (NEGATIVE); Leukocyte Esterase Urine UA NEGATIVE (NEGATIVE); Nitrite Urine UA NEGATIVE (Negative); Occult Blood Urine UA 1+ (Negative); Protein Urine UA NEGATIVE (Negative); RBC Urine 1-5/HPF (0-5/HPF); Specific Gravity Urine UA <=1.005 (1.000-1.035); Squamous Epithelial Cell Urine 1-5 /HPF (0-5/HPF); Urobilinogen Urine UA 0.2 E.U./dL (0.2); WBC Urine 1-5/HPF (0-5/HPF)
[2022-02-28 18:01] LABS: Culture Indicated Urine Cult Not Indicated
[2022-02-28 19:34] LABS: COVID19 -Nasal RAPID Negative (Negative)
[2022-02-28] MEDS: PIPERACILLIN/TAZO 4.5 GM in SODIUM CHLORIDE 0.9% 100 ML IV (19:54)
--- NOTE | 2022-02-28 20:06 | P.HP_ITS ---
History of Present Illness History of Present Illness Date Patient Seen: 02/28/22 Time Patient Seen: 20:06 Chief complaint: blood in stools sent [facility] Narrative: This is a 21-year-old female with ulcerative colitis and recent anemia who presents with increasing abdominal pain and lower GI bright red blood melena. This episode started 1 week ago, right after . She was seen in the [facility] Emergency Department a few days ago and reports a hemoglobin less than 8 which she received 1 unit of blood transfusion for. She says she was not admitted to the hospital but spent 12 hours in the emergency department. She says she was given a dose of IV steroids which has not been effective at slowing the diarrhea/bleeding. Her CT scan today shows left colonic colitis without abscess. Her white blood count is normal. The hemog lobin is 8.1 and the complete metabolic panel is normal. She was diagnosed with ulcerative colitis in 2019 when living in [place] and recently moved to the [facility] to live with her sister and has not been working or obtained a primary care physician so far. She has had no vomiting, fevers, coughing or dysuria. Patient History Medical History (Updated 02/28/22 @ 20:08 by Bry Tamayo MD) Anemia Ulcerative colitis Surgical History (Updated 02/28/22 @ 20:08 by Bry Tamayo MD) History of hip surgery Comment: Bilateral hip ORIF in childhood. Family & Social History Family History (Updated 02/28/22 @ 20:08 by Bry Tamayo MD) Mother Diabetes mellitus Father Brain aneurysm Safety & Behavioral: Feels Safe in Current Yes Environment Been Physically Hurt or No Threatened By a Person Tobacco & Substance use: Smoking Status Current every day smoker alcohol intake frequency holiday/special occasion Substance Use Type marijuana Meds Home Medications and Allergies Home Medications Medication Instructions Recorded Confirmed Type ferrous sulfate 325 mg (65 mg mg 02/28/22 History iron) tablet (FeroSul) labetalol 100 mg tablet 100 mg PO BID 02/28/22 02/28/22 History prednisone 10 mg tablet 60 mg PO DAILY 02/28/22 02/28/22 History Allergies Allergy/AdvReac Type Severity Reaction Status Date / Time control Allergy Unknown Uncoded 02/28/22 13:07 Review of Systems Review of Systems Narrative: Positive for diarrhea, lower GI bleed, abdominal pain and weakness. Negative for fever, chills, sweats, chest pain, coughing, seizures, rashes, joint pain, new allergies, sore throat, dysuria. Exam Vital Signs (past 8 hours): - 02/28/22 13:00 02/28/22 13:34 02/28/22 13:35 Temperature 97.1 F L Pulse Rate 131 H 95 H Respiratory Rate 14 17 Blood Pressure 119/72 111/71 Pulse Oximetry 99 98 Oxygen Delivery Method Room Air 02/28/22 13:35 02/28/22 13:45 02/28/22 14:00 Temperature Pulse Rate 97 H 96 H Respiratory Rate 14 20 Blood Pressure 96/59 L Pulse Oximetry 98 98 Oxygen Delivery Method 02/28/22 14:00 02/28/22 14:15 02/28/22 14:30 Temperature Pulse Rate 93 H 97 H Respiratory Rate 14 17 Blood Pressure 96/57 L Pulse Oximetry 98 98 Oxygen Delivery Method 02/28/22 14:30 02/28/22 14:45 02/28/22 15:00 Temperature Pulse Rate 97 H 98 H Respiratory Rate 13 15 Blood Pressure 123/62 Pulse Oximetry 97 99 Oxygen Delivery Method 02/28/22 15:00 02/28/22 15:15 02/28/22 15:30 Temperature Pulse Rate 89 97 H Respiratory Rate 9 L 19 Blood Pressure 111/78 Pulse Oximetry 99 97 Oxygen Delivery Method Room Air 02/28/22 15:30 02/28/22 15:45 02/28/22 16:00 Temperature Pulse Rate 95 H 92 H 93 H Respiratory Rate 9 L 13 13 Blood Pressure Pulse Oximetry 99 99 99 Oxygen Delivery Method 02/28/22 16:15 02/28/22 16:47 Temperature Pulse Rate 90 93 H Respiratory Rate 13 18 Blood Pressure 111/78 Pulse Oximetry 98 99 Oxygen Delivery Method Room Air Room Air Oxygen Delivery Method Room Air Narrative Exam Narrative: She is alert and oriented x3. She is soft-spoken and is demanding to eat. She seems to lack motivation to obtain local medical care and has some distrust. Pupils are equally round and reactive to light and accommodation. Extraocular muscles are intact. Sclerae are pink and nonicteric. No lymph nodes are felt head, neck, supraclavicular area There is no thyromegaly No carotid bruits are heard JVD is less than 6 cm Throat looks normal Heart is regular rate and rhythm without murmur Lungs are clear to auscultation bilaterally Abdomen is soft, bowel sounds positive, no organomegaly. She is tender in the right lower quadrant. Extremities have no ankle edema Skin has no rash or jaundice Neurologic exam: Cranial nerves 2-12 test intact There is no tremor Motor function is 5/[address] scan - abdomen: Radiologist's impression: PROCEDURE:? CT ABDOMEN PELVIS W CON ? INDICATIONS:? rectal bleeding; hx UC ? TECHNIQUE:? After the administration of IV contrast, axial sections were acquired from the lung bases to the pubic symphysis.? Coronal and sagittal reformats were performed.? For radiation dose reduction, the following was used:? automated exposure control, adjustment of mA and/or kV according to patient size. ? COMPARISON:? None. ? FINDINGS:? Image quality:? Portions of the lower pelvis are suboptimally evaluated secondary to metallic streak artifact from bilateral femoral fixation hardware. ? Lung bases:? Unremarkable.? ? Heart:? No significant findings. ? ? ABDOMEN: Liver:? Liver is enlarged measuring 20.1 cm. Gallbladder:? Unremarkable.? ? Biliary ducts:? Unremarkable.? ? Pancreas:? Unremarkable.? ? Spleen:? Unremarkable.? ? Adrenal Glands:? Unremarkable.? ? Kidneys and Ureters:? Unremarkable.? ? ? Stomach and Bowel:? Stomach, small bowel loops, and colon are nonobstructive.? Colon demonstrates diffuse thickening within the distal transverse and most notable descending and sigmoid colon.? Pericolonic inflammatory changes present.? No visualized div erticula. ?Mild dependent fluid. ? Ventral Wall: ? Fat containing ventral hernia.? Abdominal Nodes:? No retroperitoneal or mesenteric adenopathy by size criteria.? Vessels:? Aorta and inferior vena cava are normal in size.? ? PELVIS: Pelvic Organs:? Unremarkable.? ? Bladder:? Unremarkable.? ? Pelvic Nodes: No enlarged lymph nodes.? Miscellaneous: No inguinal hernias are seen. ? ? ? Bones:? Unremarkable.? IMPRESSION:? ? Left colonic colitis secondary to infection/inflammation or potentially ischemia.? No associated abscess. ? ? Dictated by: Sheryl Mabry M.D. on 02/28/2022 at 16:30 ? ? Labs Result Diagrams: 02/28/22 13:30 02/28/22 13:30 Labs: Laboratory Results - last 24 hr 02/28/22 02/28/22 02/28/22 13:30 13:30 13:30 WBC 10.7 RBC 3.41 L Hgb 8.1 L Hct 25.2 L MCV 74.0 L MCH 23.9 L MCHC 32.3 RDW 17.7 H Plt Count 489 H Neut % (Auto) 68.6 Lymph % (Auto) 20.3 L [place] % (Auto) 10.6 Eos % (Auto) 0.2 L Baso % (Auto) 0.3 Neut # (Auto) 7300 H Lymph # (Auto) 2200 [place] # (Auto) 1100 H Eos # (Auto) 0 Baso # (Auto) 0 PT 14.0 H INR 1.2 APTT 22 L Sodium 140 Potassium 3.7 Chloride 104 Carbon Dioxide 27 BUN 5 L Creatinine 0.53 Estimated GFR > 60 BUN/Creatinine Ratio 9.4 Glucose 97 Lactate Calcium 8.5 Total Bilirubin 0.3 AST 18 ALT 13 Alkaline Phosphatase 61 Total Protein 8.2 Albumin 3.4 L Globulin 4.8 H Albumin/Globulin Ratio 0.7 L Urine Color Urine Appearance Urine pH Ur Specific [place] Urine Protein Urine Glucose (UA) Urine Ketones Urine Occult Blood Urine Nitrate Urine Bilirubin Urine Urobilinogen Ur Leukocyte Esterase Urine RBC Urine WBC Ur Squamous Epith Cells Urine Bacteria Ur Culture Indicated? SARS-CoV-2 (PCR) Blood Type Antibody Screen 02/28/22 02/28/22 02/28/22 13:30 13:30 17:14 WBC RBC Hgb Hct MCV MCH MCHC RDW Plt Count Neut % (Auto) Lymph % (Auto) [place] % (Auto) Eos % (Auto) Baso % (Auto) Neut # (Auto) Lymph # (Auto) [place] # (Auto) Eos # (Auto) Baso # (Auto) PT INR APTT Sodium Potassium Chloride Carbon Dioxide BUN Creatinine Estimated GFR BUN/Creatinine Ratio Glucose Lactate 0.8 Calcium Total Bilirubin AST ALT Alkaline Phosphatase Total Protein Albumin Globulin Albumin/Globulin Ratio Urine Color Yellow Urine Appearance Clear Urine pH 7.0 Ur Specific [place] <=1.005 Urine Protein Negative Urine Glucose (UA) Negative Urine Ketones Negative Urine Occult Blood 1+ H Urine Nitrate Negative Urine Bilirubin Negative Urine Urobilinogen 0.2 Ur Leukocyte Esterase Negative Urine RBC 1-5/hpf Urine WBC 1-5/hpf Ur Squamous Epith Cells 1-5 /hpf Urine Bacteria None seen Ur Culture Indicated? Cult not indicated SARS-CoV-2 (PCR) Blood Type A Positive Antibody Screen Negative 02/28/22 19:02 WBC RBC Hgb Hct MCV MCH MCHC RDW Plt Count Neut % (Auto) Lymph % (Auto) [place] % (Auto) Eos % (Auto) Baso % (Auto) Neut # (Auto) Lymph # (Auto) [place] # (Auto) Eos # (Auto) Baso # (Auto) PT INR APTT Sodium Potassium Chloride Carbon Dioxide BUN Creatinine Estimated GFR BUN/Creatinine Ratio Glucose Lactate Calcium Total Bilirubin AST ALT Alkaline Phosphatase Total Protein Albumin Globulin Albumin/Globulin Ratio Urine Color Urine Appearance Urine pH Ur Specific [place] Urine Protein Urine Glucose (UA) Urine Ketones Urine Occult Blood Urine Nitrate Urine Bilirubin Urine Urobilinogen Ur Leukocyte Esterase Urine RBC Urine WBC Ur Squamous Epith Cells Urine Bacteria Ur Culture Indicated? SARS-CoV-2 (PCR) Negative Blood Type Antibody Screen Assessment & Plan Assessment & Plan narrative: This is a 21-year-old female with ulcerative colitis and recent anemia who presents with increasing abdominal pain and lower GI bright red blood melena. This episode started 1 week ago, right after . She was seen in the [facility] Emergency Department a few days ago and reports a hemoglobin less than 8 which she received 1 unit of blood transfusion for. Acute ulcerative colitis, present on admission. Active. -per CT scan:Left colonic colitis secondary to infection/inflammation or potentially ischemia. -normal white blood count 10.7 with hemoglobin of 8.1. -status post 1 unit packed red blood cell transfusion at [facility] this week. -surgical consultation requested and will be seen by Dr. Zepeda on 03/01 -continue Zosyn and Solu-Medrol IV -Clear liquids as cleared by surgery -continue IV fluid supplementation Normocytic anemia, present on admission. Active. -reportedly status post 1 unit blood transfusion in the [facility] ED earlier this week. -presenting hemoglobin 8.1, follow closely and treat accordingly. Backup decision maker is her sister SCD for DVT prevention Time Spent With Patient Critical Care time: I spent a total of [] minutes of critical care time on this patient's care today; this time is exclusive of procedural time.
[2022-02-28] MEDS: methylPREDNISolone 125 MG/2 ML VIAL 60 MG IV (21:42)
[2022-02-28] MEDS: DEXTROSE 5%-0.9% NS 1,000 ML 100 ML IV (22:20)
[2022-03-01] MEDS: PIPERACILLIN/TAZO 3.375 GM in SODIUM CHLORIDE 0.9% 100 ML IV ×4 (00:36→23:59)
--- NOTE | 2022-03-01 03:02 | PC.NURSE ---
Pt's stool liquid, brown, with celestino blood and clots present. Pt reports cramping sensation and pain in abdomen.
[2022-03-01] MEDS: methylPREDNISolone 125 MG/2 ML VIAL 60 MG IV ×3 (03:15→14:12)
[2022-03-01] MEDS: HYDROCODONE/ACET 5/325 TABLET 1 TAB PO ×2 (03:15→08:03)
[2022-03-01 05:06] VITALS: BP 98/62; PULSE 71; RESP 16; TEMP 36.9; O2SAT 97
[2022-03-01 07:37] LABS: Add Manual Diff / Slide Review NO; Basophils Absolute Auto 0 /uL (0-100); Basophils Percent Auto 0.2 % (0-2); Eosinophils Absolute Auto 0 /uL (0-450); Hematocrit 24.5 % (36-46); Hemoglobin 7.9 g/dL (12.0-16.0); Lymphocytes Absolute Auto 1000 /uL (1100-4500); Lymphocytes Percent Auto 10.1 % (25-40); Mean Corpuscular Hemoglobin 23.8 PG (26-34); Mean Corpuscular Volume 74.2 fL (80-100); Monocytes Absolute Auto 200 /uL (0-900); Monocytes Percent Auto 2.3 % (3-14); Neutrophils Absolute Auto 8700 /uL (1500-7000); Neutrophils Percent Auto 87.4 % (50-75); Platelet Count 442 X10^3/uL (150-400); Red Blood Cell Count 3.31 X10^6/uL (4.0-5.2); Red Cell Distribution Width 17.4 % (11.6-14.8); White Blood Cell Count 9.9 X10^3/uL (4.5-11.0)
[2022-03-01 07:49] LABS: BUN Creatinine Ratio 8.9 (6-22); Blood Urea Nitrogen 5 mg/dL (7-17); Carbon Dioxide 26 mmol/L (22-32); Chloride 104 mmol/L (98-107); Estimated Glomerular Filt Rate > 60 mL/min (>60); Glucose 142 mg/dL (70-100); HEMOLYSIS < 15 (0-50); Potassium 4.2 mmol/L (3.4-5.1); Sodium 137 mmol/L (137-145)
[2022-03-01 08:00] VITALS: BP 102/66; PULSE 59; RESP 16; TEMP 36.3; O2SAT 97
[2022-03-01] MEDS: DEXTROSE 5%-0.9% NS 1,000 ML 100 ML IV (08:19)
[2022-03-01] MEDS: FERROUS SULFATE 325 MG TABLET PO (10:19)
--- NOTE | 2022-03-01 10:44 | CM.DANOTE ---
DCP Assessment: Payor confirmed: [employer] PCP confirmed: Pt set up with a MD at [facility] for 03/10. Pt is a 21 y.o. F who presented to the ER with abdominal pain and rectal bleeding. Pt has a history of ulcerative colitis as of three years ago and has not been getting any treatment. Pt admitted to the floor for surgical consultation and further management and evaluation. DCP met with pt this morning to discuss discharge needs. Pt laying in bed. DCP introduced self and role. Pt is independent at baseline and lives with her sister and 1 y.o. son in [place]. Pt expressed concern that she has not yet seen the surgeon and wants to know if she is going to get surgery or go home today. DCP reassured pt that the surgeon will be in to see her once she is able to. Pt declines resources at this time. DCP does not identify any needs at this time. Pt thankful for discussion. P: Pt to consult with surgery to determine if surgery is needed. Anticipate discharge home via [facility] POV once medically stable. Lali Campo RN/KYLE Discharge Planning/Care Management CM Discharge Assessment Start: 03/01/22 10:41 Freq: Status: Active Protocol: Document 03/01/22 10:41 JOSLYN (Rec: 03/01/22 10:42 JOSLYN [id number]) Discharge Planning Assessment Assigned [employer] Lali Campo RN/KYLE Advance Directives? No History Provided By Patient,Medical Record Prior Living Arrangements House Household Members family,children Independent with ADL's Yes Is patient alert and oriented? Yes Caregiver for Another Yes: 1 y.o. son Discharge Plan Home Transportation Arrangement Sister POV Referrals Initiated None needed Whiteboard Updated in Patient Room with Yes name and ext. # of [employer] Comment Instructed to call Review Status In Process Please Provide Date Initial DC 03/01/22 Assessment Was Performed Next Review Type Continued Stay Review
--- NOTE | 2022-03-01 13:24 | P.CONS_ITS ---
History of Present Illness Consult details Chief complaint: blood in stools sent [facility] Narrative: Ms. Lemon says that she was diagnosed with a tissue biopsy with Ulcerative Colitis in 2019 while living in [place] at [facility] in [place], [place]. She was advised to take some suppositories at the time, but wasn't really compliant, which she now regrets. For the last few years, she really just dealt with the symptoms which were uncomfortable but manageable. She explains that she would have occasional stomach pain and cramps, never really had a solid stool and sometimes there was blood or the stool was just weird. BMs were often painful. This episode began about a week and a half ago, around . She has traveled here from [place] recently and she and her 1 year old son are staying with her sister. Her plan had been to fly out to stay with another relative in [place] in the next few weeks. Recently, many household members were sick with a URI, but no GI issues. She really isn't sure what triggered this episode, but she has been having bright red bloody BMs daily for about 1.5 weeks. There have been darker clots, sometimes bright red. She went to [facility] last week and was transfused a unit of blood, waited in the ED for 12 hours and was then discharge home with a referral to a airport tower controller who is not taking new patients. She has no PCP and hasn't seen a doctor in sometime. She admits she has been under a lot of stress in the preceding few weeks. PSH: She's had bilateral hip replacements, because she broke her right hip at age 10 and it was found that the left one was close to slipping. She they were both done at the same time. Some time about 2018 she had some screws removed form one side beace they were bothering her. The only other time sh had anesthesia was post natally, she needed a balloon placed in her uterus for peripartum hemorrhage when she lost 2 L of blood. PMH: She's been diagnosed with Hypertension, is supposed to be taking Labetolol but hasn't been taking it for some time. Fhx: she has no family history of inflammatory bowel or colon cancer. Her father had surgery for ulcers and has a very large abdominal scar. Meds Home Medications and Allergies Home Medications Medication Instructions Recorded Confirmed Type ferrous sulfate 325 mg (65 mg 325 mg PO DAILY 02/28/22 02/28/22 History iron) tablet (FeroSul) labetalol 100 mg tablet 100 mg PO BID 02/28/22 02/28/22 History prednisone 10 mg tablet 60 mg PO DAILY 02/28/22 02/28/22 History Allergies Allergy/AdvReac Type Severity Reaction Status Date / Time ethinyl estradiol AdvReac Intermediate Swelling Verified 03/01/22 14:11 [From Loestrin .08/26 (21)] of Lip/Tongue/Throat norethindrone acetate AdvReac Intermediate Swelling Verified 03/01/22 14:11 [From Loestrin .08/26 (21)] of Lip/Tongue/Throat Exam Vital Signs (past 8 hours): - 03/01/22 08:00 Temperature 97.3 F L Pulse Rate 59 L Respiratory Rate 16 Blood Pressure 102/66 Pulse Oximetry 97 Oxygen Delivery Method Room Air Oxygen Flow Rate 0 Narrative Exam Narrative: General : Awake alert oriented and appropriate. No acute distress. Thin habitus Resp: breathing non labored on room air. GI: abdomen is soft, mildly tender BL LQs. no peritoneal signs. No scars/her nias. Bilateral calfs are not tender nor swollen Objective Labs Result Diagrams: 03/01/22 13:16 03/01/22 07:30 Labs: Laboratory Results - last 24 hr 02/28/22 02/28/22 02/28/22 13:30 13:30 13:30 WBC 10.7 RBC 3.41 L Hgb 8.1 L Hct 25.2 L MCV 74.0 L MCH 23.9 L MCHC 32.3 RDW 17.7 H Plt Count 489 H Neut % (Auto) 68.6 Lymph % (Auto) 20.3 L [place] % (Auto) 10.6 Eos % (Auto) 0.2 L Baso % (Auto) 0.3 Neut # (Auto) 7300 H Lymph # (Auto) 2200 [place] # (Auto) 1100 H Eos # (Auto) 0 Baso # (Auto) 0 PT 14.0 H INR 1.2 APTT 22 L Sodium 140 Potassium 3.7 Chloride 104 Carbon Dioxide 27 BUN 5 L Creatinine 0.53 Estimated GFR > 60 BUN/Creatinine Ratio 9.4 Glucose 97 Lactate Calcium 8.5 Total Bilirubin 0.3 AST 18 ALT 13 Alkaline Phosphatase 61 Total Protein 8.2 Albumin 3.4 L Globulin 4.8 H Albumin/Globulin Ratio 0.7 L Urine Color Urine Appearance Urine pH Ur Specific [place] Urine Protein Urine Glucose (UA) Urine Ketones Urine Occult Blood Urine Nitrate Urine Bilirubin Urine Urobilinogen Ur Leukocyte Esterase Urine RBC Urine WBC Ur Squamous Epith Cells Urine Bacteria Ur Culture Indicated? SARS-CoV-2 (PCR) Blood Type Antibody Screen 02/28/22 02/28/22 02/28/22 13:30 13:30 17:14 WBC RBC Hgb Hct MCV MCH MCHC RDW Plt Count Neut % (Auto) Lymph % (Auto) [place] % (Auto) Eos % (Auto) Baso % (Auto) Neut # (Auto) Lymph # (Auto) [place] # (Auto) Eos # (Auto) Baso # (Auto) PT INR APTT Sodium Potassium Chloride Carbon Dioxide BUN Creatinine Estimated GFR BUN/Creatinine Ratio Glucose Lactate 0.8 Calcium Total Bilirubin AST ALT Alkaline Phosphatase Total Protein Albumin Globulin Albumin/Globulin Ratio Urine Color Yellow Urine Appearance Clear Urine pH 7.0 Ur Specific [place] <=1.005 Urine Protein Negative Urine Glucose (UA) Negative Urine Ketones Negative Urine Occult Blood 1+ H Urine Nitrate Negative Urine Bilirubin Negative Urine Urobilinogen 0.2 Ur Leukocyte Esterase Negative Urine RBC 1-5/hpf Urine WBC 1-5/hpf Ur Squamous Epith Cells 1-5 /hpf Urine Bacteria None seen Ur Culture Indicated? Cult not indicated SARS-CoV-2 (PCR) Blood Type A Positive Antibody Screen Negative 02/28/22 03/01/22 03/01/22 19:02 07:30 07:30 WBC 9.9 RBC 3.31 L Hgb 7.9 L Hct 24.5 L MCV 74.2 L MCH 23.8 L MCHC 32.0 RDW 17.4 H Plt Count 442 H Neut % (Auto) 87.4 H Lymph % (Auto) 10.1 L [place] % (Auto) 2.3 L Eos % (Auto) 0.0 L Baso % (Auto) 0.2 Neut # (Auto) 8700 H Lymph # (Auto) 1000 L [place] # (Auto) 200 Eos # (Auto) 0 Baso # (Auto) 0 PT INR APTT Sodium 137 Potassium 4.2 Chloride 104 Carbon Dioxide 26 BUN 5 L Creatinine 0.56 Estimated GFR > 60 BUN/Creatinine Ratio 8.9 Glucose 142 H Lactate Calcium 8.0 L Total Bilirubin AST ALT Alkaline Phosphatase Total Protein Albumin Globulin Albumin/Globulin Ratio Urine Color Urine Appearance Urine pH Ur Specific [place] Urine Protein Urine Glucose (UA) Urine Ketones Urine Occult Blood Urine Nitrate Urine Bilirubin Urine Urobilinogen Ur Leukocyte Esterase Urine RBC Urine WBC Ur Squamous Epith Cells Urine Bacteria Ur Culture Indicated? SARS-CoV-2 (PCR) Negative Blood Type Antibody Screen [facility] Medical History (Updated 03/01/22 @ 13:27 by Glory Zepeda MD) Anemia Ulcerative colitis Surgical History (Updated 02/28/22 @ 20:08 by Bry Tamayo MD) History of hip surgery Family History (Updated 02/28/22 @ 20:08 by Bry Tamayo MD) Mother Diabetes mellitus Father Brain aneurysm Social History household members: family and children Tobacco & Substance Use Smoking Status: Current every day smoker alcohol intake: current Assessment & Plan Assessment and plan (1) Ulcerative colitis with rectal bleeding: Status: Acute Plan 1. First line treatment is iv steriods (dose equivalent to 300 mg hydrocortisone per day) for 3-5 days. (Could add either cyclosporine, imfliximab) 2. Iv Zosyn is empiric but usually part of treatment, and I would continue. 3. check stool for salmonella, yersinia, shigella, c.diff, CMV and treat w/ approp meds if so (CMV colitis tx with IV gangcyclovir at 5 mg/kg q 12hours for 14-21 days transitioned to 100 mg PO TID) 4. advance diet as tolerated. 5. start dvt ppx if Hb remains stable. 6. transfuse only one unit at a time if Hb drops to 7.0 or below. 7. I have begun process to obtain medical records from [facility] in [place], [place] called [facility] or [facility] from 8. pain control: NO NSAIDs for inflammatory bowel patients. Will adjust regimen as needed. will try some oral meds. 8. Will contact a local colorectal surgeon for transfer/follow up plans, as needed, in the next 24-48 hours 9. if surgical intervention required for uncontrolled hemorrhage, increasing size of colon (usu>~6cm), or simply refractory to medical treatment, standard would be a subtotal colectomy with end illeostomy. (future plan would be to take down illeostomy, resect rectal stump, and make an lleal pouch with an illeo- anal anastomosis - usually a procedure best done by a colorectal specialist) 10. Even if no surgical intervention will be needed, she will need follow up arranged for colon cancer screening and maintenance treatment for her UC prior to discharge. Will follow. Thank you for this consult. Contact me directly as needed at [phone] Time Spent With Patient Critical Care time: I spent a total of [] minutes of critical care time on this patient's care today; this time is exclusive of procedural time.
[2022-03-01 13:53] LABS: Hematocrit 24.5 % (36-46); Hemoglobin 7.8 g/dL (12.0-16.0)
[2022-03-01] MEDS: ACETAMINOPHEN 325 MG TABLET 975 MG PO ×2 (14:11→19:42)
[2022-03-01] MEDS: LORazepam 0.5 MG TABLET PO (14:12)
[2022-03-01] MEDS: HYDROMORPHONE 0.5 MG INJ IV (14:12)
[2022-03-01] MEDS: SODIUM CHLORIDE 0.9% 1,000 ML 100 ML IV (14:22)
--- NOTE | 2022-03-01 15:06 | P.PN_ITS ---
Subjective Subjective Date Patient Seen: 03/01/22 Interval history: Continues to have moderate to severe abdominal pain, bloody bowel movements today, two thus far as of early this afternoon. Denies fever or chills. Patient diagnosed in 2019 with UC, was prescribed suppositories but unclear what kind. She has never needed steroids or immunlogic agents before. Exam Vital Signs (past 8 hours): - 03/01/22 08:00 Temperature 97.3 F L Pulse Rate 59 L Respiratory Rate 16 Blood Pressure 102/66 Pulse Oximetry 97 Oxygen Delivery Method Room Air Oxygen Flow Rate 0 Narrative Exam Narrative: General:? Patient is well developed and well nourished, mildly anxious and reserved. HEENT:? Normocephalic, atraumatic, extraocular muscles intact, oral pharynx is clear and mucous membranes are moist. Musculoskeletal:? Muscle strength and tone are equal within normal limits, no deformity. Extremities: No edema or joint effusions. No cyanosis or clubbing. Neuro:? Alert and orientated x3, no gross deficits noted of cranial nerves. Objective Labs Result Diagrams: 03/01/22 13:16 03/01/22 07:30 Labs: Laboratory Results - last 24 hr 02/28/22 02/28/22 02/28/22 13:30 17:14 19:02 WBC RBC Hgb Hct MCV MCH MCHC RDW Plt Count Neut % (Auto) Lymph % (Auto) [place] % (Auto) Eos % (Auto) Baso % (Auto) Neut # (Auto) Lymph # (Auto) [place] # (Auto) Eos # (Auto) Baso # (Auto) Sodium Potassium Chloride Carbon Dioxide BUN Creatinine Estimated GFR BUN/Creatinine Ratio Glucose Lactate 0.8 Calcium Urine Color Yellow Urine Appearance Clear Urine pH 7.0 Ur Specific [place] <=1.005 Urine Protein Negative Urine Glucose (UA) Negative Urine Ketones Negative Urine Occult Blood 1+ H Urine Nitrate Negative Urine Bilirubin Negative Urine Urobilinogen 0.2 Ur Leukocyte Esterase Negative Urine RBC 1-5/hpf Urine WBC 1-5/hpf Ur Squamous Epith Cells 1-5 /hpf Urine Bacteria None seen Ur Culture Indicated? Cult not indicated SARS-CoV-2 (PCR) Negative 03/01/22 03/01/22 03/01/22 07:30 07:30 13:16 WBC 9.9 RBC 3.31 L Hgb 7.9 L 7.8 L Hct 24.5 L 24.5 L MCV 74.2 L MCH 23.8 L MCHC 32.0 RDW 17.4 H Plt Count 442 H Neut % (Auto) 87.4 H Lymph % (Auto) 10.1 L [place] % (Auto) 2.3 L Eos % (Auto) 0.0 L Baso % (Auto) 0.2 Neut # (Auto) 8700 H Lymph # (Auto) 1000 L [place] # (Auto) 200 Eos # (Auto) 0 Baso # (Auto) 0 Sodium 137 Potassium 4.2 Chloride 104 Carbon Dioxide 26 BUN 5 L Creatinine 0.56 Estimated GFR > 60 BUN/Creatinine Ratio 8.9 Glucose 142 H Lactate Calcium 8.0 L Urine Color Urine Appearance Urine pH Ur Specific [place] Urine Protein Urine Glucose (UA) Urine Ketones Urine Occult Blood Urine Nitrate Urine Bilirubin Urine Urobilinogen Ur Leukocyte Esterase Urine RBC Urine WBC Ur Squamous Epith Cells Urine Bacteria Ur Culture Indicated? SARS-CoV-2 (PCR) [facility] Medical History (Updated 03/01/22 @ 13:27 by Glory Zepeda MD) Anemia Ulcerative colitis Surgical History (Updated 02/28/22 @ 20:08 by Bry Tamayo MD) History of hip surgery Family History (Updated 02/28/22 @ 20:08 by Bry Tamayo MD) Mother Diabetes mellitus Father Brain aneurysm Social History household members: family and children Smoking Status: Current every day smoker alcohol intake: current Assessment & Plan Assessment & Plan narrative: This is a 21-year-old female with ulcerative colitis and recent anemia who presents with increasing abdominal pain and lower GI bright red blood melena. This episode started 1 week ago, right after . She was seen in the [facility] Emergency Department a few days ago and reports a hemoglobin less than 8 which she received 1 unit of blood transfusion for. Acute ulcerative colitis, present on admission. Active. -per CT scan:Left colonic colitis secondary to infection/inflammation or potentially ischemia. -normal white blood count 10.7 with hemoglobin of 8.1. -status post 1 unit packed red blood cell transfusion at [facility] this week and was discharged with oral prednisone. -appreciate general surgery consultation -continue Zosyn (low threshold to discontinue if negative infectious workup) and Solu-Medrol IV, was on 60 mg methylprednisolone q6 but can reduce to 20 mg q8, more standard dosing (usually methylprednisolone 20q8 or hydrocortisone 100 q8) in UC. She failed response to oral prednisone as an outpatient. If no clinical response consider infliximab, unclear if this is available at our facility. -GI panel ordered to rule out infectious etiology -diet advanced per surgery. -continue IV fluid supplementation Acute blood loss anemia, present on admission. Active. -reportedly status post 1 unit blood transfusion in the [facility] ED earlier this week. -presenting hemoglobin 8.1, follow closely and treat accordingly. Backup decision maker is her sister SCD for DVT prevention Time Spent With Patient Critical Care time: I spent a total of [] minutes of critical care time on this patient's care today; this time is exclusive of procedural time. Quality VTE Deep Vein Thrombosis/Pulmonary Embolism Present on Admission: No
[2022-03-01] MEDS: methylPREDNISolone 125 MG/2 ML VIAL 20 MG IV ×2 (16:46→22:50)
[2022-03-01] MEDS: OXYCODONE IR 10 MG TABLET PO (19:42)
--- NOTE | 2022-03-02 02:45 | PC.NURSE ---
Pt is AxOx4, independent and cooperative. VSS, pt c/o abd pain 10/06 around 1929 and recieved PRN Oxy 10mg PO as well as her scheduled Tyl with good effect. Otherwise, no changes. Pt slept well. No BM overnight.
[2022-03-02] MEDS: OXYCODONE IR 10 MG TABLET PO ×2 (04:36→18:14)
[2022-03-02 05:14] VITALS: BP 120/79; PULSE 54; RESP 16; TEMP 36.9; O2SAT 100
--- NOTE | 2022-03-02 07:06 | PM.PN.1 ---
Subjective Subjective Date Patient Seen: 03/02/22 Time Patient Seen: 10:00 Interval history: Patient says abd pain and bloody stools slightly better today. Notes she has PCP establish care appt on 03/10 as she is new to the area. Exam Vital Signs (past 8 hours): - 03/02/22 05:14 Temperature 98.4 F Pulse Rate 54 L Respiratory Rate 16 Blood Pressure 120/79 Pulse Oximetry 100 Oxygen Flow Rate 0 Oxygen Delivery Method Room Air Oxygen Flow Rate 0 Narrative Exam Narrative: General:? Patient is well developed and well nourished, mildly anxious and reserved. HEENT:? Normocephalic, atraumatic, extraocular muscles intact, oral pharynx is clear and mucous membranes are moist. Musculoskeletal:? Muscle strength and tone are equal within normal limits, no deformity. Extremities: No edema or joint effusions. No cyanosis or clubbing. Neuro:? Alert and orientated x3, no gross deficits noted of cranial nerves. Objective Labs Result Diagrams: 03/02/22 10:25 03/02/22 10:25 Labs: Laboratory Results - last 24 hr 03/01/22 03/01/22 03/01/22 07:30 07:30 13:16 WBC 9.9 RBC 3.31 L Hgb 7.9 L 7.8 L Hct 24.5 L 24.5 L MCV 74.2 L MCH 23.8 L MCHC 32.0 RDW 17.4 H Plt Count 442 H Neut % (Auto) 87.4 H Lymph % (Auto) 10.1 L [place] % (Auto) 2.3 L Eos % (Auto) 0.0 L Baso % (Auto) 0.2 Neut # (Auto) 8700 H Lymph # (Auto) 1000 L [place] # (Auto) 200 Eos # (Auto) 0 Baso # (Auto) 0 Sodium 137 Potassium 4.2 Chloride 104 Carbon Dioxide 26 BUN 5 L Creatinine 0.56 Estimated GFR > 60 BUN/Creatinine Ratio 8.9 Glucose 142 H Calcium 8.0 L C. difficile Tox (PCR) 03/02/22 04:39 WBC RBC Hgb Hct MCV MCH MCHC RDW Plt Count Neut % (Auto) Lymph % (Auto) [place] % (Auto) Eos % (Auto) Baso % (Auto) Neut # (Auto) Lymph # (Auto) [place] # (Auto) Eos # (Auto) Baso # (Auto) Sodium Potassium Chloride Carbon Dioxide BUN Creatinine Estimated GFR BUN/Creatinine Ratio Glucose Calcium C. difficile Tox (PCR) Cancelled [facility] Medical History (Updated 03/01/22 @ 13:27 by Glory Zepeda MD) Anemia Ulcerative colitis Surgical History (Updated 02/28/22 @ 20:08 by Bry Tamayo MD) History of hip surgery Family History (Updated 02/28/22 @ 20:08 by Bry Tamayo MD) Mother Diabetes mellitus Father Brain aneurysm Social History household members: family and children Smoking Status: Current every day smoker alcohol intake: current Assessment & Plan Assessment & Plan narrative: This is a 21-year-old female with ulcerative colitis and recent anemia who presents with increasing abdominal pain and lower GI bright red blood melena. This episode started 1 week ago, right after . She was seen in the [facility] Emergency Department a few days ago and reports a hemoglobin less than 8 which she received 1 unit of blood transfusion for. Acute ulcerative colitis flair, present on admission. Active. -per CT scan: Left colonic colitis secondary to infection/inflammation or potentially ischemia. -normal white blood count 10.7 with hemoglobin of 8.1. -status post 1 unit packed red blood cell transfusion at [facility] this week and was discharged with oral prednisone. -appreciate general surgery consultation -stop Zosyn as stool PCR neg, check CMV PCR -spoke with GI at [facility], rec increasing to Solu-Medrol IV 125mg q6h with taper and adding mesalamine 1600mg po TID -once rectal bleeding has stopped, can discharge on 60mg po prednisone daily with protonix 40mg daily for ulcer prophylaxis -diet advanced per surgery -continue IV fluid supplementation -has PCP follow-up on 03/10 and will need stat referral to GI for outpatient colonoscopy Acute blood loss anemia, present on admission. Active. -reportedly status post 1 unit blood transfusion in the [facility] ED earlier this week. -presenting hemoglobin 8.1, follow closely and treat accordingly. -currently down to 7.5 -transfuse at <7 Backup decision maker is her sister SCD for DVT prevention Time Spent With Patient Critical Care time: I spent a total of [] minutes of critical care time on this patient's care today; this time is exclusive of procedural time. Quality VTE Deep Vein Thrombosis/Pulmonary Embolism Present on Admission: No
[2022-03-02 07:44] LABS: Adenovirus F 40/41 Not Detected (Not Detect); Astrovirus Not Detected (Not Detect); Campylobacter Not Detected (Not Detect); Clostridium difficile toxin AB Not Detected (Not Detect); Cryptosporidium Not Detected (Not Detect); Cyclospora cayetanensis Not Detected (Not Detect); Entamoeba histolytica Not Detected (Not Detect); Enteroaggregative E.coli Not Detected (Not Detect); Enteropathogenic E.coli Not Detected (Not Detect); Enterotoxigenic E.coli It/st Not Detected (Not Detect); Giardia lamblia Not Detected (Not Detect); Norovirus GI/GII Not Detected (Not Detect); Plesiomonsa shigelloides Not Detected (Not Detect); Rotavirus A Not Detected (Not Detect); Salmonella Not Detected (Not Detect); Sapovirus Not Detected (Not Detect); Shiga-like toxin-prod E.coli Not Detected (Not Detect); Shigella/Enteroinvasive E.coli Not Detected (Not Detect); Vibrio Not Detected (Not Detect); Vibrio cholerae Not Detected (Not Detect); Yersinia enterocolitica Not Detected (Not Detect)
[2022-03-02] MEDS: ACETAMINOPHEN 325 MG TABLET 975 MG PO ×3 (08:53→19:53)
[2022-03-02] MEDS: HYDROMORPHONE 0.5 MG INJ IV ×2 (08:53→13:04)
[2022-03-02] MEDS: FERROUS SULFATE 325 MG TABLET PO (08:54)
[2022-03-02] MEDS: LORazepam 0.5 MG TABLET PO ×2 (08:54→23:58)
[2022-03-02] MEDS: PIPERACILLIN/TAZO 3.375 GM in SODIUM CHLORIDE 0.9% 100 ML IV (08:55)
[2022-03-02] MEDS: methylPREDNISolone 125 MG/2 ML VIAL 20 MG IV (09:00)
[2022-03-02 11:15] LABS: Add Manual Diff / Slide Review NO; Basophils Absolute Auto 0 /uL (0-100); Eosinophils Absolute Auto 0 /uL (0-450); Eosinophils Percent Auto 0.1 % (2-4); Hematocrit 23.6 % (36-46); Hemoglobin 7.5 g/dL (12.0-16.0); Lymphocytes Absolute Auto 2000 /uL (1100-4500); Lymphocytes Percent Auto 16.6 % (25-40); Mean Corpuscular HGB Conc 31.6 % (30-36); Mean Corpuscular Hemoglobin 23.5 PG (26-34); Mean Corpuscular Volume 74.2 fL (80-100); Monocytes Absolute Auto 700 /uL (0-900); Monocytes Percent Auto 5.9 % (3-14); Neutrophils Absolute Auto 9200 /uL (1500-7000); Neutrophils Percent Auto 77.4 % (50-75); Platelet Count 399 X10^3/uL (150-400); Red Blood Cell Count 3.18 X10^6/uL (4.0-5.2); Red Cell Distribution Width 17.7 % (11.6-14.8); White Blood Cell Count 11.9 X10^3/uL (4.5-11.0)
--- NOTE | 2022-03-02 11:21 | P.PN_ITS ---
Subjective Subjective Date Patient Seen: 03/02/22 Time Patient Seen: 11:21 Interval history: Lisa says she feels about the same today as yesterday. She thinks her bowel movements have changed and are increasing the amount of actual stool that is coming out versus blood. She would count that is an improvement. She is tolerating food though her appetite is not great. Her pain is still present but tolerable. Exam Vital Signs (past 8 hours): - 03/02/22 05:14 Temperature 98.4 F Pulse Rate 54 L Respiratory Rate 16 Blood Pressure 120/79 Pulse Oximetry 100 Oxygen Flow Rate 0 Oxygen Delivery Method Room Air Oxygen Flow Rate 0 Narrative Exam Narrative: She is awake alert oriented in no acute distress. She is a little anxious Her breathing is nonlabored on room air Her abdomen is soft and minimally tender in the left lower quadrant worse than right minimal distension. I feel it is improved slightly from yesterday. Objective Labs Result Diagrams: 03/01/22 13:16 03/01/22 07:30 Labs: Laboratory Results - last 24 hr 03/01/22 03/02/22 03/02/22 13:16 04:39 05:37 Hgb 7.8 L Hct 24.5 L Stl C. cayetanensis PCR Not detected Stool Rotavirus (PCR) Not detected Stool Adenovirus (PCR) Not detected Stool Astrovirus (PCR) Not detected Stool Cryptosporidium PCR Not detected Stl E.coli Shiga Tox PCR Not detected St Sh/Enteroin Ecoli PCR Not detected Stool E coli O157 PCR Not Reportable Stl Enterotoxigenic E PCR Not detected Stool EPEC (PCR) Not detected Stl E. histolytica PCR Not detected Stool Giardia Lamblia PCR Not detected Stool Sapovirus (PCR) Not detected Stl P. shigelloides PCR Not detected St Y.enterocolitica PCR Not detected Stool Vibrio (PCR) Not detected Stl Vibrio cholerae PCR Not detected Stl Enteroaggr Ecoli PCR Not detected Stl Norovirus GI/GII PCR Not detected Campylobacter (PCR) Not detected C. difficile Tox (PCR) Cancelled Not detected Salmonella (PCR) Not detected PFSH Medical History (Updated 03/01/22 @ 13:27 by Glory Zepeda MD) Anemia Ulcerative colitis Surgical History (Updated 02/28/22 @ 20:08 by Bry Tamayo MD) History of hip surgery Family History (Updated 02/28/22 @ 20:08 by Bry Tamayo MD) Mother Diabetes mellitus Father Brain aneurysm Social History household members: family and children Smoking Status: Current every day smoker alcohol intake: current Assessment & Plan Assessment and plan (1) Ulcerative colitis with rectal bleeding: Status: Acute Assessment & Plan narrative: Still working on finding records from her tissue diagnosis. I think the problem is that the diagnosis was made as an outpatient so hospital records are coming up empty. She said her she had a colonoscopy at a center that was attached right next to the hospital. We will continue to look for these. Overall, slightly improved today, will continue the diet will continue IV steroids. Let's talk to [facility] and find out if we can transfer her to [facility] in case she would need he wear a or colorectal surgery consult. Stool studies so far coming up negative; labs this morning are still pending but if her hemoglobin is stable I would start her on DVT prophylaxis. I spent at least 15 minutes on the phone with her sister Leisa discussing the diagnosis of ulcerative colitis the possible need for surgery in the case of an acute flare up and long-term. Answered several questions about ileostomies and surgical procedures as well as medical treatments. Time Spent With Patient Critical Care time: I spent a total of [] minutes of critical care time on this patient's care today; this time is exclusive of procedural time. Quality VTE Deep Vein Thrombosis/Pulmonary Embolism Present on Admission: No
[2022-03-02 11:26] LABS: BUN Creatinine Ratio 11.8 (6-22); Blood Urea Nitrogen 9 mg/dL (7-17); Calcium 7.6 mg/dL (8.4-10.2); Carbon Dioxide 28 mmol/L (22-32); Chloride 105 mmol/L (98-107); Estimated Glomerular Filt Rate > 60 mL/min (>60); Glucose 113 mg/dL (70-100); HEMOLYSIS < 15 (0-50); Magnesium 1.8 mg/dL (1.6-2.3); Potassium 3.9 mmol/L (3.4-5.1); Sodium 138 mmol/L (137-145)
[2022-03-02 11:50] VITALS: BP 112/64; PULSE 60; RESP 18; TEMP 36.8; O2SAT 100
[2022-03-02] MEDS: MESALAMINE 800 MG TABLET.DR 1600 MG PO ×2 (18:09→23:46)
[2022-03-02] MEDS: methylPREDNISolone 125 MG/2 ML VIAL IV ×2 (18:13→23:46)
--- NOTE | 2022-03-02 18:50 | PC.NURSE ---
a/o, voices needs. energy level is slightly improved today, pallor is slightly improved, less sánchez. negative stool panel, d/c culture per Dr Zepeda. started med for UC today, no ASE. H+H is 7.5/23.6 'zaida No and Duane aware. pain (post-prandial) controlled thru the day w/ IV dilauded, PRN oxycodone. sister and patient's son here to visit today, patient brightened and was smiling and engaging w/ nurse. SL, accepting PO fluids, no further BMs for rest of shift.
[2022-03-02 21:49] VITALS: BP 104/62; PULSE 60; RESP 19; TEMP 36.8; O2SAT 99
--- NOTE | 2022-03-02 22:16 | PC.NURSE ---
Patient is alert and oriented. Breath sounds CTA with RA sat of 99%. HRR. Denies nausea. BT present and abdomen is soft but does complain of sharp, cramping pains across lower abdomen and is tender to palpation. Denies dysuria, frequency or urgency with urination. Independent with mobility. Has refused to use SCD's. Fall risk score is low.
[2022-03-02] MEDS: SODIUM CHLORIDE 0.9% FLUSH 10 ML IV (23:47)
[2022-03-02] MEDS: HYDROMORPHONE 1 MG INJ IV (23:48)
[2022-03-03 00:38] VITALS: BP 130/82; PULSE 55; RESP 20; TEMP 36; O2SAT 99
[2022-03-03] MEDS: ACETAMINOPHEN 325 MG TABLET 975 MG PO ×2 (03:50→17:35)
[2022-03-03] MEDS: SODIUM CHLORIDE 0.9% FLUSH 10 ML IV ×3 (05:46→23:29)
[2022-03-03] MEDS: methylPREDNISolone 125 MG/2 ML VIAL IV ×3 (05:46→17:35)
[2022-03-03] MEDS: OXYCODONE IR 10 MG TABLET PO ×2 (05:51→21:06)
--- NOTE | 2022-03-03 07:10 | P.PN_ITS ---
Subjective Subjective Date Patient Seen: 03/03/22 Interval history: Had 3 bloody BM's yesterday but less blood than before. None yet today. She is happy about this. Exam Vital Signs (past 8 hours): - 03/03/22 00:38 Temperature 96.8 F L Pulse Rate 55 L Respiratory Rate 20 Blood Pressure 130/82 Pulse Oximetry 99 Oxygen Flow Rate 0 Oxygen Delivery Method Room Air Oxygen Flow Rate 0 Narrative Exam Narrative: General:? Patient is well developed and well nourished, mildly anxious and reserved. HEENT:? Normocephalic, atraumatic, extraocular muscles intact, oral pharynx is clear and mucous membranes are moist. Musculoskeletal:? Muscle strength and tone are equal within normal limits, no deformity. Extremities: No edema or joint effusions. No cyanosis or clubbing. Neuro:? Alert and orientated x3, no gross deficits noted of cranial nerves. Objective Labs Result Diagrams: 03/03/22 08:05 03/03/22 08:05 Labs: Laboratory Results - last 24 hr 03/02/22 03/02/22 03/02/22 05:37 10:25 10:25 WBC 11.9 H RBC 3.18 L Hgb 7.5 L Hct 23.6 L MCV 74.2 L MCH 23.5 L MCHC 31.6 RDW 17.7 H Plt Count 399 Neut % (Auto) 77.4 H Lymph % (Auto) 16.6 L [place] % (Auto) 5.9 Eos % (Auto) 0.1 L Baso % (Auto) 0.0 Neut # (Auto) 9200 H Lymph # (Auto) 2000 [place] # (Auto) 700 Eos # (Auto) 0 Baso # (Auto) 0 Sodium 138 Potassium 3.9 Chloride 105 Carbon Dioxide 28 BUN 9 Creatinine 0.76 Estimated GFR > 60 BUN/Creatinine Ratio 11.8 Glucose 113 H Calcium 7.6 L Magnesium 1.8 Stl C. cayetanensis PCR Not detected Stool Rotavirus (PCR) Not detected Stool Adenovirus (PCR) Not detected Stool Astrovirus (PCR) Not detected Stool Cryptosporidium PCR Not detected Stl E.coli Shiga Tox PCR Not detected St Sh/Enteroin Ecoli PCR Not detected Stool E coli O157 PCR Not Reportable Stl Enterotoxigenic E PCR Not detected Stool EPEC (PCR) Not detected Stl E. histolytica PCR Not detected Stool Giardia Lamblia PCR Not detected Stool Sapovirus (PCR) Not detected Stl P. shigelloides PCR Not detected St Y.enterocolitica PCR Not detected Stool Vibrio (PCR) Not detected Stl Vibrio cholerae PCR Not detected Stl Enteroaggr Ecoli PCR Not detected Stl Norovirus GI/GII PCR Not detected Campylobacter (PCR) Not detected C. difficile Tox (PCR) Not detected Salmonella (PCR) Not detected [facility] Medical History (Updated 03/01/22 @ 13:27 by Glory Zepeda MD) Anemia Ulcerative colitis Surgical History (Updated 02/28/22 @ 20:08 by Bry Tamayo MD) History of hip surgery Family History (Updated 02/28/22 @ 20:08 by Bry Tamayo MD) Mother Diabetes mellitus Father Brain aneurysm Social History household members: family and children Smoking Status: Current every day smoker alcohol intake: current Assessment & Plan Assessment & Plan narrative: This is a 21-year-old female with ulcerative colitis and recent anemia who presents with increasing abdominal pain and lower GI bright red blood melena. This episode started 1 week ago, right after . She was seen in the [facility] Emergency Department a few days ago and reports a hemoglobin less than 8 which she received 1 unit of blood transfusion for. Acute ulcerative colitis flair, present on admission. Active. -per CT scan: Left colonic colitis secondary to infection/inflammation or potentially ischemia. -normal white blood count 10.7 with hemoglobin of 8.1. -status post [facility] and was discharged with oral prednisone. -appreciate general surgery consultation -stop Zosyn as stool PCR neg, check CMV PCR -spoke with GI at [facility], rec increasing to Solu-Medrol IV 125mg q6h with taper and adding mesalamine 1600mg po TID -once rectal bleeding has stopped, can discharge on 60mg po prednisone daily with protonix 40mg daily for ulcer prophylaxis -diet advanced per surgery -continue IV fluid supplementation -has PCP follow-up on 03/10 and will need stat referral to GI for outpatient colonoscopy Acute blood loss anemia, present on admission. Improving. -reportedly status post 1 unit blood transfusion in the [facility] ED earlier this week. -presenting hemoglobin 8.1, follow closely and treat accordingly. -currently in 8's -transfuse at <7 Backup decision maker is her sister SCD for DVT prevention Time Spent With Patient Critical Care time: I spent a total of [] minutes of critical care time on this patient's care today; this time is exclusive of procedural time. Quality VTE Deep Vein Thrombosis/Pulmonary Embolism Present on Admission: No
[2022-03-03] MEDS: ONDANSETRON 4 MG/2 ML INJ IV (07:46)
[2022-03-03 08:26] LABS: Add Manual Diff / Slide Review NO; Basophils Absolute Auto 0 /uL (0-100); Basophils Percent Auto 0.1 % (0-2); Eosinophils Absolute Auto 0 /uL (0-450); Hemoglobin 8.3 g/dL (12.0-16.0); Lymphocytes Absolute Auto 1300 /uL (1100-4500); Lymphocytes Percent Auto 13.1 % (25-40); Mean Corpuscular Hemoglobin 23.6 PG (26-34); Mean Corpuscular Volume 73.8 fL (80-100); Monocytes Absolute Auto 300 /uL (0-900); Monocytes Percent Auto 2.6 % (3-14); Neutrophils Absolute Auto 8500 /uL (1500-7000); Neutrophils Percent Auto 84.2 % (50-75); Platelet Count 464 X10^3/uL (150-400); Red Blood Cell Count 3.53 X10^6/uL (4.0-5.2); Red Cell Distribution Width 18.4 % (11.6-14.8); White Blood Cell Count 10.1 X10^3/uL (4.5-11.0)
[2022-03-03 09:01] LABS: BUN Creatinine Ratio 21.3 (6-22); Blood Urea Nitrogen 10 mg/dL (7-17); Calcium 8.2 mg/dL (8.4-10.2); Carbon Dioxide 27 mmol/L (22-32); Chloride 101 mmol/L (98-107); Estimated Glomerular Filt Rate > 60 mL/min (>60); Glucose 117 mg/dL (70-100); HEMOLYSIS < 15 (0-50); Magnesium 1.8 mg/dL (1.6-2.3); Potassium 4.1 mmol/L (3.4-5.1); Sodium 136 mmol/L (137-145)
[2022-03-03 09:21] VITALS: BP 112/68; PULSE 54; RESP 16; TEMP 36.2; O2SAT 99
[2022-03-03] MEDS: MESALAMINE 800 MG TABLET.DR 1600 MG PO ×3 (09:58→21:04)
[2022-03-03] MEDS: FERROUS SULFATE 325 MG TABLET PO (09:58)
[2022-03-03] MEDS: OXYCODONE IR 5 MG TABLET PO (09:58)
--- NOTE | 2022-03-03 11:25 | PM.PN.1 ---
Subjective Subjective Interval history: Lisa is feeling better today. She thinks her pain is a little bit improved. The bleeding per rectum also seems to have slowed down. This morning she is tolerating a regular diet she is still needing some IV pain medicine for pain but is overall less anxious and improved. Exam Vital Signs (past 8 hours): - 03/03/22 09:21 Temperature 97.2 F L Pulse Rate 54 L Respiratory Rate 16 Blood Pressure 112/68 Pulse Oximetry 99 Oxygen Flow Rate 0 Oxygen Delivery Method Room Air Oxygen Flow Rate 0 Narrative Exam Narrative: She is awake alert oriented very pleasant and appropriate Her breathing is nonlabored on room air Her abdomen is soft minimally tender right lower quadrant, today left lower quadrant is almost nontender Objective Labs Result Diagrams: 03/03/22 08:05 03/03/22 08:05 Labs: Laboratory Results - last 24 hr 03/02/22 03/02/22 03/03/22 10:25 10:25 08:05 WBC 11.9 H 10.1 RBC 3.18 L 3.53 L Hgb 7.5 L 8.3 L Hct 23.6 L 26.0 L MCV 74.2 L 73.8 L MCH 23.5 L 23.6 L MCHC 31.6 32.0 RDW 17.7 H 18.4 H Plt Count 399 464 H Neut % (Auto) 77.4 H 84.2 H Lymph % (Auto) 16.6 L 13.1 L [place] % (Auto) 5.9 2.6 L Eos % (Auto) 0.1 L 0.0 L Baso % (Auto) 0.0 0.1 Neut # (Auto) 9200 H 8500 H Lymph # (Auto) 2000 1300 [place] # (Auto) 700 300 Eos # (Auto) 0 0 Baso # (Auto) 0 0 Sodium 138 Potassium 3.9 Chloride 105 Carbon Dioxide 28 BUN 9 Creatinine 0.76 Estimated GFR > 60 BUN/Creatinine Ratio 11.8 Glucose 113 H Calcium 7.6 L Magnesium 1.8 03/03/22 08:05 WBC RBC Hgb Hct MCV MCH MCHC RDW Plt Count Neut % (Auto) Lymph % (Auto) [place] % (Auto) Eos % (Auto) Baso % (Auto) Neut # (Auto) Lymph # (Auto) [place] # (Auto) Eos # (Auto) Baso # (Auto) Sodium 136 L Potassium 4.1 Chloride 101 Carbon Dioxide 27 BUN 10 Creatinine 0.47 L Estimated GFR > 60 BUN/Creatinine Ratio 21.3 Glucose 117 H Calcium 8.2 L Magnesium 1.8 PFSH Medical History (Updated 03/01/22 @ 13:27 by Glory Zepeda MD) Anemia Ulcerative colitis Surgical History (Updated 02/28/22 @ 20:08 by Bry Tamayo MD) History of hip surgery Family History (Updated 02/28/22 @ 20:08 by Bry Tamayo MD) Mother Diabetes mellitus Father Brain aneurysm Social History household members: family and children Smoking Status: Current every day smoker alcohol intake: current Assessment & Plan Assessment and plan (1) Ulcerative colitis with rectal bleeding: Status: Acute Assessment & Plan narrative: Today we have increased her steroid dose and added mesalamine. She can continue a normal diet and DVT prophylaxis. I will continue to follow and I have asked my office to help arrange follow-up with [facility] prior to discharge. In these cases it is not unusual to spend at least 5-7 days in the hospital getting IV medication and waiting for the colon to improve. At this point given that she is improving I am more and more hopeful that no emergent or urgent operative intervention will be necessary. Time Spent With Patient Critical Care time: I spent a total of [] minutes of critical care time on this patient's care today; this time is exclusive of procedural time. Quality VTE Deep Vein Thrombosis/Pulmonary Embolism Present on Admission: No
[2022-03-03 13:53] VITALS: BP 128/86; PULSE 60; RESP 18; TEMP 36.3; O2SAT 99
[2022-03-03] MEDS: ENOXAPARIN 40 MG/0.4 ML SYRINGE SUBCUT (14:01)
[2022-03-03] MEDS: HYDROMORPHONE 0.5 MG INJ IV ×2 (14:02→23:24)
[2022-03-03 23:30] VITALS: BP 134/92; PULSE 58; RESP 18; TEMP 36.4; O2SAT 99
[2022-03-04] MEDS: methylPREDNISolone 125 MG/2 ML VIAL IV ×3 (01:17→16:40)
[2022-03-04] MEDS: SODIUM CHLORIDE 0.9% FLUSH 10 ML IV ×3 (01:17→20:17)
[2022-03-04] MEDS: ACETAMINOPHEN 325 MG TABLET 975 MG PO (05:00)
[2022-03-04] MEDS: OXYCODONE IR 10 MG TABLET PO (06:49)
--- NOTE | 2022-03-04 07:41 | P.PN_ITS ---
Subjective Subjective Date Patient Seen: 03/04/22 Interval history: Stools are less bloody, however she had 3 yesterday. She is feeling overall better but still with some abd pain. She was able to get an appt with [employer] on 03/10. Exam Vital Signs (past 8 hours): Oxygen Delivery Method Room Air Oxygen Flow Rate 0 Narrative Exam Narrative: General:? Patient is well developed and well nourished, mildly anxious and reserved. HEENT:? Normocephalic, atraumatic, extraocular muscles intact, oral pharynx is clear and mucous membranes are moist. Musculoskeletal:? Muscle strength and tone are equal within normal limits, no deformity. Extremities: No edema or joint effusions. No cyanosis or clubbing. Neuro:? Alert and orientated x3, no gross deficits noted of cranial nerves. Objective Labs Result Diagrams: 03/04/22 08:45 03/04/22 08:36 Labs: Laboratory Results - last 24 hr 03/03/22 03/03/22 08:05 08:05 WBC 10.1 RBC 3.53 L Hgb 8.3 L Hct 26.0 L MCV 73.8 L MCH 23.6 L MCHC 32.0 RDW 18.4 H Plt Count 464 H Neut % (Auto) 84.2 H Lymph % (Auto) 13.1 L [place] % (Auto) 2.6 L Eos % (Auto) 0.0 L Baso % (Auto) 0.1 Neut # (Auto) 8500 H Lymph # (Auto) 1300 [place] # (Auto) 300 Eos # (Auto) 0 Baso # (Auto) 0 Sodium 136 L Potassium 4.1 Chloride 101 Carbon Dioxide 27 BUN 10 Creatinine 0.47 L Estimated GFR > 60 BUN/Creatinine Ratio 21.3 Glucose 117 H Calcium 8.2 L Magnesium 1.8 PFSH Medical History (Updated 03/01/22 @ 13:27 by Glory Zepeda MD) Anemia Ulcerative colitis Surgical History (Updated 02/28/22 @ 20:08 by Bry Tamayo MD) History of hip surgery Family History (Updated 02/28/22 @ 20:08 by Bry Tamayo MD) Mother Diabetes mellitus Father Brain aneurysm Social History household members: family and children Smoking Status: Current every day smoker alcohol intake: current Assessment & Plan Assessment & Plan narrative: This is a 21-year-old female with ulcerative colitis and recent anemia who presents with increasing abdominal pain and lower GI bright red blood melena. This episode started 1 week ago, right after . She was seen in the [facility] Emergency Department a few days ago and reports a hemoglobin less than 8 which she received 1 unit of blood transfusion for. Acute ulcerative colitis flair, present on admission. Active. -per CT scan: Left colonic colitis secondary to infection/inflammation or potent ially ischemia. -normal white blood count 10.7 with hemoglobin of 8.1. -status post 1 unit packed red blood cell transfusion at [facility] this week and was discharged with oral prednisone. -appreciate general surgery consultation -stop Zosyn as stool PCR neg, check CMV PCR -spoke with GI at [facility], rec increasing to Solu-Medrol IV 125mg q6h with taper and adding mesalamine 1600mg po TID -once rectal bleeding has stopped, can discharge on 60mg po prednisone daily with protonix 40mg daily for ulcer prophylaxis -diet advanced per surgery -continue IV fluid supplementation -Gen surg able to get an appt with [facility] GI on 03/10 Acute blood loss anemia, present on admission. Improving. -reportedly status post 1 unit blood transfusion in the [facility] ED earlier this week. -presenting hemoglobin 8.1, follow closely and treat accordingly. -currently in 8's -transfuse at <7 Backup decision maker is her sister SCD for DVT prevention Time Spent With Patient Critical Care time: I spent a total of [] minutes of critical care time on this patient's care today; this time is exclusive of procedural time. Quality VTE Deep Vein Thrombosis/Pulmonary Embolism Present on Admission: No
[2022-03-04] MEDS: FERROUS SULFATE 325 MG TABLET PO (08:40)
[2022-03-04] MEDS: MESALAMINE 800 MG TABLET.DR 1600 MG PO ×3 (08:40→20:03)
[2022-03-04] MEDS: ENOXAPARIN 40 MG/0.4 ML SYRINGE SUBCUT (08:40)
[2022-03-04 08:54] LABS: Add Manual Diff / Slide Review NO; Basophils Absolute Auto 100 /uL (0-100); Basophils Percent Auto 0.5 % (0-2); Eosinophils Absolute Auto 0 /uL (0-450); Hemoglobin 8.3 g/dL (12.0-16.0); Lymphocytes Absolute Auto 1700 /uL (1100-4500); Lymphocytes Percent Auto 16.3 % (25-40); Mean Corpuscular Hemoglobin 23.5 PG (26-34); Mean Corpuscular Volume 73.6 fL (80-100); Monocytes Absolute Auto 300 /uL (0-900); Monocytes Percent Auto 3.3 % (3-14); Neutrophils Absolute Auto 8300 /uL (1500-7000); Neutrophils Percent Auto 79.9 % (50-75); Platelet Count 431 X10^3/uL (150-400); Red Blood Cell Count 3.54 X10^6/uL (4.0-5.2); Red Cell Distribution Width 18.5 % (11.6-14.8); White Blood Cell Count 10.4 X10^3/uL (4.5-11.0)
[2022-03-04 09:07] LABS: BUN Creatinine Ratio 29.6 (6-22); Blood Urea Nitrogen 16 mg/dL (7-17); Calcium 8.3 mg/dL (8.4-10.2); Carbon Dioxide 25 mmol/L (22-32); Chloride 101 mmol/L (98-107); Estimated Glomerular Filt Rate > 60 mL/min (>60); Glucose 154 mg/dL (70-100); HEMOLYSIS < 15 (0-50); Sodium 136 mmol/L (137-145)
[2022-03-04 12:00] VITALS: BP 107/76; PULSE 57; RESP 20; TEMP 36.4; O2SAT 99
[2022-03-04 19:30] VITALS: BP 130/90; PULSE 50; RESP 18; TEMP 36.9; O2SAT 98
[2022-03-04] MEDS: LORazepam 0.5 MG TABLET PO (20:02)
[2022-03-04] MEDS: diphenhydrAMINE 50 MG/ML VIAL 25 MG IV (20:16)
[2022-03-05] MEDS: OXYCODONE IR 10 MG TABLET PO (00:49)
[2022-03-05] MEDS: methylPREDNISolone 125 MG/2 ML VIAL IV ×2 (00:49→09:25)
[2022-03-05 04:20] VITALS: PULSE 42; RESP 13; TEMP 36.5; O2SAT 99
[2022-03-05 06:24] VITALS: BP 115/90; PULSE 42; RESP 16; TEMP 35.4; O2SAT 98
[2022-03-05 07:21] LABS: Add Manual Diff / Slide Review NO; Basophils Absolute Auto 0 /uL (0-100); Basophils Percent Auto 0.1 % (0-2); Eosinophils Absolute Auto 0 /uL (0-450); Hematocrit 26.7 % (36-46); Hemoglobin 8.7 g/dL (12.0-16.0); Lymphocytes Absolute Auto 1600 /uL (1100-4500); Lymphocytes Percent Auto 15.1 % (25-40); Mean Corpuscular HGB Conc 32.8 % (30-36); Mean Corpuscular Hemoglobin 24.1 PG (26-34); Mean Corpuscular Volume 73.7 fL (80-100); Monocytes Absolute Auto 400 /uL (0-900); Monocytes Percent Auto 3.7 % (3-14); Neutrophils Absolute Auto 8400 /uL (1500-7000); Neutrophils Percent Auto 81.1 % (50-75); Platelet Count 447 X10^3/uL (150-400); Red Blood Cell Count 3.62 X10^6/uL (4.0-5.2); Red Cell Distribution Width 19.4 % (11.6-14.8); White Blood Cell Count 10.3 X10^3/uL (4.5-11.0)
--- NOTE | 2022-03-05 08:13 | PM.PN.1 ---
Exam Vital Signs (past 8 hours): - 03/05/22 04:20 03/05/22 06:24 Temperature 97.7 F 95.7 F L Pulse Rate 42 L 42 L Respiratory Rate 13 16 Blood Pressure 115/90 Pulse Oximetry 99 98 Oxygen Flow Rate 0 0 Oxygen Delivery Method Room Air Oxygen Flow Rate 0 Narrative Exam Narrative: General:? Patient is well developed and well nourished, mildly anxious and reserved. HEENT:? Normocephalic, atraumatic, extraocular muscles intact, oral pharynx is clear and mucous membranes are moist. Musculoskeletal:? Muscle strength and tone are equal within normal limits, no deformity. Extremities: No edema or joint effusions. No cyanosis or clubbing. Neuro:? Alert and orientated x3, no gross deficits noted of cranial nerves. Objective Labs Result Diagrams: 03/05/22 06:56 03/04/22 08:36 Labs: Laboratory Results - last 24 hr 03/04/22 03/04/22 03/05/22 08:36 08:45 06:56 WBC 10.4 10.3 RBC 3.54 L 3.62 L Hgb 8.3 L 8.7 L Hct 26.0 L 26.7 L MCV 73.6 L 73.7 L MCH 23.5 L 24.1 L MCHC 32.0 32.8 RDW 18.5 H 19.4 H Plt Count 431 H 447 H Neut % (Auto) 79.9 H 81.1 H Lymph % (Auto) 16.3 L 15.1 L [place] % (Auto) 3.3 3.7 Eos % (Auto) 0.0 L 0.0 L Baso % (Auto) 0.5 0.1 Neut # (Auto) 8300 H 8400 H Lymph # (Auto) 1700 1600 [place] # (Auto) 300 400 Eos # (Auto) 0 0 Baso # (Auto) 100 0 Sodium 136 L Potassium 4.0 Chloride 101 Carbon Dioxide 25 BUN 16 Creatinine 0.54 Estimated GFR > 60 BUN/Creatinine Ratio 29.6 H Glucose 154 H Calcium 8.3 L PFSH Medical History (Updated 03/01/22 @ 13:27 by Glory Zepeda MD) Anemia Ulcerative colitis Surgical History (Updated 02/28/22 @ 20:08 by Bry Tamayo MD) History of hip surgery Family History (Updated 02/28/22 @ 20:08 by Bry Tamayo MD) Mother Diabetes mellitus Father Brain aneurysm Social History household members: family and children Smoking Status: Current every day smoker alcohol intake: current Assessment & Plan Assessment & Plan narrative: Acute ulcerative colitis flair, present on admission. Active. -per CT scan: Left colonic colitis secondary to infection/inflammation or potentially ischemia. -normal white blood count 10.7 with hemoglobin of 8.1. -status post 1 unit packed red blood cell transfusion at [facility] this week and was discharged with oral prednisone. -appreciate general surgery consultation -stop Zosyn as stool PCR neg, check CMV PCR -spoke with GI at [facility], rec increasing to Solu-Medrol IV 125mg q6h with taper and adding mesalamine 1600mg po TID -once rectal bleeding has stopped, can discharge on 60mg po prednisone daily with protonix 40mg daily for ulcer prophylaxis -diet advanced per surgery -continue IV fluid supplementation -Gen surg able to get an appt with [facility] on 03/10 Acute blood loss anemia, present on admission. Improving. -reportedly status post 1 unit blood [place] [facility] [place] this week. -presenting hemoglobin 8.1, follow closely and treat accordingly. -currently in 8's -transfuse at <7 Backup decision maker is her sister SCD for DVT prevention Time Spent With Patient Critical Care time: I spent a total of [] minutes of critical care time on this patient's care today; this time is exclusive of procedural time. Quality VTE Deep Vein Thrombosis/Pulmonary Embolism Present on Admission: No
[2022-03-05] MEDS: MESALAMINE 800 MG TABLET.DR 1600 MG PO (09:24)
[2022-03-05] MEDS: FERROUS SULFATE 325 MG TABLET PO (09:24)
[2022-03-05] MEDS: SODIUM CHLORIDE 0.9% FLUSH 10 ML IV (09:25)
--- NOTE | 2022-03-05 09:25 | PM.PN.1 ---
Subjective Subjective Date Patient Seen: 03/04/22 Time Patient Seen: 17:30 Interval history: Chitra said she is doing better there is almost no blood in her stool her pain is controlled with the pain medicine. She has been arranged to have follow-up with a environmental compliance specialist on at 1:00 p.m. at [facility]. She had a PCP appointment for the same day and was asking about that. Exam Vital Signs (past 8 hours): - 03/05/22 04:20 03/05/22 06:24 Temperature 97.7 F 95.7 F L Pulse Rate 42 L 42 L Respiratory Rate 13 16 Blood Pressure 115/90 Pulse Oximetry 99 98 Oxygen Flow Rate 0 0 Oxygen Delivery Method Room Air Oxygen Flow Rate 0 Narrative Exam Narrative: Abdomen is soft nontender and nondistended patient is appropriate and pleasant in no acute distress Objective Labs Result Diagrams: 03/05/22 06:56 03/04/22 08:36 Labs: Laboratory Results - last 24 hr 03/05/22 06:56 WBC 10.3 RBC 3.62 L Hgb 8.7 L Hct 26.7 L MCV 73.7 L MCH 24.1 L MCHC 32.8 RDW 19.4 H Plt Count 447 H Neut % (Auto) 81.1 H Lymph % (Auto) 15.1 L [place] % (Auto) 3.7 Eos % (Auto) 0.0 L Baso % (Auto) 0.1 Neut # (Auto) 8400 H Lymph # (Auto) 1600 [place] # (Auto) 400 Eos # (Auto) 0 Baso # (Auto) 0 PFSH Medical History (Updated 03/01/22 @ 13:27 by Glory Zepeda MD) Anemia Ulcerative colitis Surgical History (Updated 02/28/22 @ 20:08 by Bry Tamayo MD) History of hip surgery Family History (Updated 02/28/22 @ 20:08 by Bry Tamayo MD) Mother Diabetes mellitus Father Brain aneurysm Social History household members: family and children Smoking Status: Current every day smoker alcohol intake: current Assessment & Plan Assessment and plan (1) Ulcerative colitis with rectal bleeding: Status: Acute Plan We will continue the Solu-Medrol taper continue mesalamine continue DVT prophylaxis and monitoring. We will follow Time Spent With Patient Critical Care time: I spent a total of [] minutes of critical care time on this patient's care today; this time is exclusive of procedural time. Quality VTE Deep Vein Thrombosis/Pulmonary Embolism Present on Admission: No
--- NOTE | 2022-03-05 09:29 | PM.PN.1 ---
Subjective Subjective Date Patient Seen: 03/05/22 Time Patient Seen: 09:00 Interval history: Today Mr. Weaver states she has a family emergency and she must be discharged as soon as possible. She is feeling much much better. She is not had blood in her bowel movements for 2 days she says her pain is controlled. She says the pain medicine is still helping and would like prescription for discharge. She has follow-up on Thursday and understands that Gastroenterology is more important appointment than primary care and so if that appointment needs to be rescheduled she will do so. Exam Vital Signs (past 8 hours): - 03/05/22 04:20 03/05/22 06:24 Temperature 97.7 F 95.7 F L Pulse Rate 42 L 42 L Respiratory Rate 13 16 Blood Pressure 115/90 Pulse Oximetry 99 98 Oxygen Flow Rate 0 0 Oxygen Delivery Method Room Air Oxygen Flow Rate 0 Narrative Exam Narrative: Pleasant no acute distress though seems anxious. Abdomen is soft nontender and nondistended Objective Labs Result Diagrams: 03/05/22 06:56 03/04/22 08:36 Labs: Laboratory Results - last 24 hr 03/05/22 06:56 WBC 10.3 RBC 3.62 L Hgb 8.7 L Hct 26.7 L MCV 73.7 L MCH 24.1 L MCHC 32.8 RDW 19.4 H Plt Count 447 H Neut % (Auto) 81.1 H Lymph % (Auto) 15.1 L [place] % (Auto) 3.7 Eos % (Auto) 0.0 L Baso % (Auto) 0.1 Neut # (Auto) 8400 H Lymph # (Auto) 1600 [place] # (Auto) 400 Eos # (Auto) 0 Baso # (Auto) 0 PFSH Medical History (Updated 03/01/22 @ 13:27 by Glory Zepeda MD) Anemia Ulcerative colitis Surgical History (Updated 02/28/22 @ 20:08 by Bry Tamayo MD) History of hip surgery Family History (Updated 02/28/22 @ 20:08 by Bry Tamayo MD) Mother Diabetes mellitus Father Brain aneurysm Social History household members: family and children Smoking Status: Current every day smoker alcohol intake: current Assessment & Plan Assessment and plan (1) Ulcerative colitis with rectal bleeding: Status: Acute Plan Given that miss weaver has close follow-up arranged for Thursday next week she also has my office phone number if there is any concerns or questions, I think that we could discharge her. We will need to translate her Solu-Medrol dose to prednisone and give her a prescription for a taper to do at home. I would continue the mesalamine, and iron. I think it is okay to give her a prescription for pain medicine as well so long as she understands no driving allowed while taking it. I think she does. She also knows that she should return to the emergency room if anything new happens: Increasing pain or bleeding. Time Spent With Patient Critical Care time: I spent a total of [] minutes of critical care time on this patient's care today; this time is exclusive of procedural time. Quality VTE Deep Vein Thrombosis/Pulmonary Embolism Present on Admission: No
--- NOTE | 2022-03-05 09:34 | PM.DS.1 ---
History of Present Illness History of Present Illness Date Patient Seen: 03/05/22 Time Patient Seen: 20:06 Chief complaint: blood in stools sent [facility] Narrative: This is a 21-year-old female with ulcerative colitis and recent anemia who presents with increasing abdominal pain and lower GI bright red blood melena. This episode started 1 week ago, right after . She was seen in the [facility] Emergency Department a few days ago and reports a hemoglobin less than 8 which she received 1 unit of blood transfusion for. She says she was not admitted to the hospital but spent 12 hours in the emergency department. She says she was given a dose of IV steroids which has not been effective at slowing the diarrhea/bleeding. Her CT scan today shows left colonic colitis without abscess. Her white blood count is normal. The hemoglobin is 8.1 and the complete metabolic panel is normal. She was diagnosed with ulcerative colitis in 2019 when living in [place] and recently moved to the [facility] to live with her sister and has not been working or obtained a primary care physician so far. She has had no vomiting, fevers, coughing or dysuria. Discharge Providers Provider Date of admission: 02/28/22 19:34 Discharge Date: 03/05/22 Primary care physician: Doctor Silvia MD Consults: 02/28/22 15:54 Consult to [facility] [place] - Roster Clerk Stat Comment: 02/28/22 20:00 Consult to Physician Routine Comment: Consulting Provider: Glory Zepeda Reason for consultation: Ulcerative Colitis Has provider been notified: Yes Discharge provider: Mj No DO Summary Hospital Course Discharge Diagnosis: Acute ulcerative colitis flair, present on admission. Active. -per CT scan: Left colonic colitis secondary to infection/inflammation or potentially ischemia. -normal white blood count 10.7 with hemoglobin of 8.1. -status post 1 unit packed red blood cell transfusion at [facility] this week and was discharged with oral prednisone. -appreciate general surgery consultation -stopped Zosyn as stool PCR neg, check CMV PCR -spoke with GI at [place], rec increasing to Solu-Medrol IV 125mg q6h with taper and adding mesalamine 1600mg po TID -rectal bleeding improved significantly, able to discharge on po prednisone 60mg taper (TID then BID then daily) with protonix 40mg daily for ulcer prophylaxis -continue IV fluid supplementation -Gen surg able to get an appt with [place] [facility] on 03/10 with PA Acute blood loss anemia, present on admission. Improving. -reportedly status post 1 unit blood transfusion in the [facility] ED earlier this week. -presenting hemoglobin 8.1, follow closely and treat accordingly. -currently in 8's -transfuse at <7 Backup decision maker is her sister SCD for DVT prevention Hospital Course: Admitted for UC flair with 10+ bloody BM's per day and severe abd pain. CT abd showed left sided colitis. Stool PCR negative. CMV Ab negative. Gen surg consulted and provided recs. Spoke with [facility] as well who recommended 125mg solu medrol IV q6h with taper as well as mesalamine po TID. She improved significantly with decrease in rectal bleeding. Able to get appt for her at [facility] on 03/10. Discharged on po prednisone 60mg taper at 60mg TID, then BID, then daily along with Lialda daily and protonix. Given script for oxy for abd pain as well. She will f/u with GI clinic next week to schedule colonoscopy. Time Spent with Patient Time spent: Greater than 30 minutes Exam Vital Signs (past 8 hours): - 03/05/22 04:20 03/05/22 06:24 Temperature 97.7 F 95.7 F L Pulse Rate 42 L 42 L Respiratory Rate 13 16 Blood Pressure 115/90 Pulse Oximetry 99 98 Oxygen Flow Rate 0 0 Oxygen Delivery Method Room Air Oxygen Flow Rate 0 Narrative Exam Narrative: General:? Patient is well developed and well nourished, mildly anxious and reserved. HEENT:? Normocephalic, atraumatic, extraocular muscles intact, oral pharynx is clear and mucous membranes are moist. Musculoskeletal:? Muscle strength and tone are equal within normal limits, no deformity. Extremities: No edema or joint effusions. No cyanosis or clubbing. Neuro:? Alert and orientated x3, no gross deficits noted of cranial nerves. Objective Labs Result Diagrams: 03/05/22 06:56 03/04/22 08:36 Labs: Laboratory Results - last 24 hr 03/05/22 06:56 WBC 10.3 RBC 3.62 L Hgb 8.7 L Hct 26.7 L MCV 73.7 L MCH 24.1 L MCHC 32.8 RDW 19.4 H Plt Count 447 H Neut % (Auto) 81.1 H Lymph % (Auto) 15.1 L [place] % (Auto) 3.7 Eos % (Auto) 0.0 L Baso % (Auto) 0.1 Neut # (Auto) 8400 H Lymph # (Auto) 1600 [place] # (Auto) 400 Eos # (Auto) 0 Baso # (Auto) 0 PFSH Medical History (Updated 03/01/22 @ 13:27 by Glory Zepeda MD) Anemia Ulcerative colitis Surgical History (Updated 02/28/22 @ 20:08 by Bry Tamayo MD) History of hip surgery Family History (Updated 02/28/22 @ 20:08 by Bry Tamayo MD) Mother Diabetes mellitus Father Brain aneurysm Social History household members: family and children Smoking Status: Current every day smoker alcohol intake: current Discharge Plan Discharge Plan Patient Disposition: Home Provider Discharge Comment: You were admitted for an ulcerative colitis flare which required high dose steroids to get it under control. Thankfully you improved with this and will need to continue prednisone with the instructions I have sent on the prescription (Take 3 pills (60 mg) orally 3x times per day for 1 day, then drop to 2x daily, then once daily until you see GI in clinic to adjust further). Start these on 03/05 as soon as you pick them up. You will also be on pills called mesalamine daily to help your UC. I've sent some pain meds for you as well. Please f/u with GI in clinic for ongoing management. Discharge orders & Medications Prescriptions: New oxycodone 10 mg Tablet 10 mg PO Q4H PRN (Reason: Pain, Severe (7-10)) Qty: 30 0RF prednisone 20 mg tablet See Rx Instructions .ROUTE .COMPLEX Qty: 90 0RF Rx Instructions: Take 3 pills (60 mg) orally 3x times per day for 1 day, then drop to 2x daily, then once daily until you see GI. Start 03/05 mesalamine [Lialda] 1.2 gram tablet,delayed release (DR/EC) 2.4 g PO DAILY 28 Days Qty: 60 0RF pantoprazole [Protonix] 40 mg tablet,delayed release (DR/EC) 40 mg PO DAILY Qty: 30 0RF Continued ferrous sulfate [FeroSul] 325 mg (65 mg iron) tablet 325 mg PO DAILY Label Comments: TAKE 1 TABLET BY MOUTH ONCE DAILY Discontinued prednisone 10 mg tablet 60 mg PO DAILY Label Comments: DAY 1-4: TAKE 6 TABS (60 MG) BY MOUTH ONCE DAILY; DAY 5-7: TAKE 4 TABS (40 MG) DAILY; DAY 8-10: TAKE 2 TABS (20 MG) DAILY labetalol 100 mg tablet 100 mg PO BID Label Comments: TAKE 1 TABLET BY MOUTH TWICE DAILY Follow up/Referrals: Glory Zepeda MD [Physician] - (Follow up as needed. ) Doctor Vega MD [Primary Care Provider] - Visit Report/Discharge Packet Instructions: DI for Ulcerative Colitis Discharge Data Primary Care Provider: Doctor Silvia Quality VTE Deep Vein Thrombosis/Pulmonary Embolism Present on Admission: No
--- NOTE | 2022-03-05 12:00 | PC.NURSE ---
Pt A&OX3, VSS, afebrile on RA. She denies abdominal pain or nausea this a.m. She ate a few bites of breakfast and tolerated it well. She asks this a.m. to be discharged or sign a paper to leave [facility] for a family emergency. She is evaluated by MD Zepeda and MD No and cleared for discharge with steroid tapering with follow up with GI at [facility] on Thursday. She verbalizes understanding of discharge instructions, medications and follow up appointments. She is escorted to hospital entrance to wait for a ride from her family member with all belongings at approximately 1030a.m.
[2022-03-05 16:55] LABS: CMV DNA, Quant Real Time PCR Negative (Negative)
== END 2022-03-05 10:32 | disposition home or self-care (01) | DRG 245 ==
LOC: ED 19:15 → AC 19:36
PROVIDERS: Emergency Medicine; Internal Medicine; Student in an Organized Health Care Education/Training Program; Surgery; Admitting Provider Family Medicine; Emergency Provider Student in an Organized Health Care Education/Training Program; Referring Provider Student in an Organized Health Care Education/Training Program; Visit Provider Family Medicine
DX: K51.911 Ulcerative colitis, unspecified with rectal bleeding (principal); D62 Acute posthemorrhagic anemia; K55.1 Chronic vascular disorders of intestine; F17.200 Nicotine dependence, unspecified, uncomplicated; Z20.822 Contact with and (suspected) exposure to COVID-19
CPT/HCPCS: 36415; 74177; 80048; 80053; 81001; 81003; 81025; 83605; 83735; 85014; 85018; 85025; 85610; 85730; 86850; 86900; 86901; 87045; 87177; 87497; 87507; 87635; 96365; 96375; 96376; 99231; 99232; 99284; 99285; C9803; J1170; J1200; J1650; J2270; J2405; J2543; J2930; Q9967

== ENCOUNTER 2022-03-08 12:49 | Emergency (ER) | payer OTHER, MEDICAID, SELFPAY ==
[2022-02-28 22:02] VITALS: BMI 23.4
[2022-03-08 13:08] VITALS: BP 124/77; PULSE 109; RESP 18; TEMP 37.1; O2SAT 100; BMI 24.3
--- NOTE | 2022-03-08 13:38 | DI.RAD.S_ITS ---
PROCEDURE: XR CHEST 1V INDICATIONS: chest pain TECHNIQUE: One view of the chest was acquired. COMPARISON: None. FINDINGS: Surgical changes and devices: None. Lungs and pleura: Lungs are clear. No pleural effusions or pneumothorax. Mediastinum: Mediastinal contours appear normal. Heart size is normal. Bones and chest wall: No suspicious bony lesions. Overlying soft tissues appear unremarkable. IMPRESSION: No acute process. Dictated by: Wandy Ramos M.D. on 03/08/2022 at 13:02 Approved by: Wandy Ramos M.D. on 03/08/2022 at 13:02
--- NOTE | 2022-03-08 13:39 | PC.NURSE ---
dr. tsang vo to cancel aspirin.
[2022-03-08 13:51] LABS: Add Manual Diff / Slide Review NO; Basophils Absolute Auto 0 /uL (0-100); Basophils Percent Auto 0.1 % (0-2); Eosinophils Absolute Auto 100 /uL (0-450); Eosinophils Percent Auto 0.5 % (2-4); Hematocrit 30.6 % (36-46); Hemoglobin 9.7 g/dL (12.0-16.0); Lymphocytes Absolute Auto 2400 /uL (1100-4500); Lymphocytes Percent Auto 14.2 % (25-40); Mean Corpuscular HGB Conc 31.8 % (30-36); Mean Corpuscular Hemoglobin 23.5 PG (26-34); Mean Corpuscular Volume 73.7 fL (80-100); Monocytes Absolute Auto 1200 /uL (0-900); Monocytes Percent Auto 7.2 % (3-14); Neutrophils Absolute Auto 13300 /uL (1500-7000); Platelet Count 419 X10^3/uL (150-400); Red Blood Cell Count 4.15 X10^6/uL (4.0-5.2); Red Cell Distribution Width 19.7 % (11.6-14.8); White Blood Cell Count 17.1 X10^3/uL (4.5-11.0)
[2022-03-08 13:59] LABS: INR 1.2 (0.9-1.3); Prothrombin Time 13.3 SECONDS (10.1-12.7)
[2022-03-08 14:02] LABS: Alanine Aminotransferase 25 IU/L (<35); Albumin 3.3 g/dL (3.5-5.0); Albumin Globulin Ratio 0.8 (1.0-2.8); Alkaline Phosphatase 43 U/L (38-126); Aspartate Aminotransferase 16 IU/L (14-36); Bilirubin Total 0.4 mg/dL (0.2-1.3); Blood Urea Nitrogen 13 mg/dL (7-17); Calcium 7.6 mg/dL (8.4-10.2); Carbon Dioxide 26 mmol/L (22-32); Chloride 99 mmol/L (98-107); Creatine Kinase 30 U/L (30-135); Estimated Glomerular Filt Rate > 60 mL/min (>60); Globulin 4.1 g/dL (1.7-4.1); Glucose 86 mg/dL (70-100); HEMOLYSIS < 15 (0-50); Lipase 54 U/L (23-300); Magnesium 1.8 mg/dL (1.6-2.3); PTT Partial Thromboplastin Tim 23 SECONDS (26-36); Potassium 3.3 mmol/L (3.4-5.1); Sodium 133 mmol/L (137-145); Total Protein 7.4 g/dL (6.3-8.2)
[2022-03-08 14:03] LABS: D Dimer 1778 ng/ml (<500)
[2022-03-08 14:13] LABS: Troponin I < 0.012 ng/mL (0.01-0.034)
[2022-03-08 14:20] VITALS: PULSE 95; RESP 16; O2SAT 99
[2022-03-08 14:29] LABS: Pregnancy Test Serum,Qual Negative (Negative)
[2022-03-08 14:30] VITALS: PULSE 100; RESP 15; O2SAT 100
--- NOTE | 2022-03-08 14:31 | PC.NURSE ---
PIV unsuccessful x2
--- NOTE | 2022-03-08 14:38 | ED.CHESTPAIN ---
HPI - Chest Pain <Shelli Saini PA-C - Last Filed: 03/08/22 21:04> General Chief Complaint: Chest Pain Stated Complaint: tightness in RT shoulder,chest,ribs Time Seen by Provider: 03/08/22 13:30 Source: patient Mode of arrival: Ambulatory Limitations: no limitations History of Present Illness HPI narrative: patient is a very pleasant 21 yo female who was recently admitted 02/28/2022 with exacerbation of her ulcerative colitis. She also found to be anemic. Note patient has had blood transfusion during her hospital stay and now is on oral iron. Apparently patient felt fatigued, and had some chest tightness, discomfort in her right shoulder, right chest right abdomen. She believes that her medication is not really make a difference yet in terms of controlling ulcerative colitis. She still has fair amount of diarrhea. She denies fever chills. Admits to some nausea, bloating sensation in his stomach. Related Data Home Medications Medication Instructions Recorded Confirmed ferrous sulfate 325 mg (65 mg 325 mg PO DAILY 02/28/22 02/28/22 iron) tablet (FeroSul) Previous Rx's Medication Instructions Recorded mesalamine 1.2 gram tablet,delayed 2.4 g PO DAILY 4 weeks #60 tabs 03/05/22 release (Lialda) oxycodone 10 mg tablet 10 mg PO Q4H PRN Pain, Severe 03/05/22 (7-10) #30 tabs pantoprazole 40 mg tablet,delayed 40 mg PO DAILY #30 tabs 03/05/22 release (Protonix) prednisone 20 mg tablet See Rx Instructions .Route 03/05/22 .COMPLEX #90 tabs potassium chloride 10 mEq 10 meq PO BID #60 caps 03/08/22 capsule,extended release Allergies Allergy/AdvReac Type Severity Reaction Status Date / Time ethinyl estradiol AdvReac Intermediate Swelling Verified 03/01/22 14:11 [From Loestrin 1.08/26 (21)] of Lip/Tongue/Throat norethindrone acetate AdvReac Intermediate Swelling Verified 03/01/22 14:11 [From Loestrin 1.30 (21)] of Lip/Tongue/Throat Review of Systems <Shelli Saini PA-C - Last Filed: 03/08/22 21:04> Review of Systems Narrative: GENERAL: Denies chills, admits to fatigue, malaise, denies fever, sweats. HEENT: Denies sinus pain, ear pain, sore throat, difficulty swallowing, dizziness. RESPIRATORY: Admits to dyspnea, denies cough, wheezing, hemoptysis, sputum. Patient believes has chest tightness CARDIOVASCULAR: Denies chest pain, admits to some shortness of breath, palpitations, denies orthopnea, edema, GASTROINTESTINAL: Admits to nausea, no vomiting, admits to diffuse abdominal pain, distention, diarrhea, denies melena. : Denies dysuria, frequency, incontinence, hematuria, urinary retention. MUSCULOSKELETAL: As per HPI, right-sided shoulder pain SKIN: Denies rash, skin lesions, or other NEUROLOGIC: Denies weakness, headache, numbness, change in speech, confusion, seizures, incoordination. PSYCHIATRIC: Admits has been depressed over her declining health. 12 point review of systems is negative except for those stated above Patient History <Shelli Saini PA-C - Last Filed: 03/08/22 21:04> Medical History (Updated 03/08/22 @ 16:44 by Shelli Saini PA-C) Anemia Ulcerative colitis Surgical History (Updated 02/28/22 @ 20:08 by Bry Tamayo MD) History of hip surgery Family History (Updated 02/28/22 @ 20:08 by Bry Tamayo MD) Mother Diabetes mellitus Father Brain aneurysm Social History household members: family and children Smoking Status: Current every day smoker alcohol intake: current Smoking Status: Current every day smoker tobacco type: vaping alcohol intake frequency: holidays/special occasions only Substance Use Type: marijuana Exam <Shelli Saini PA-C - Last Filed: 03/08/22 21:04> Narrative Exam Narrative: GENERAL: 21 year old patient appears stated age. Well-developed patient, in no acute distress. HEAD: Atraumatic. Normocephalic. EYES: Pupils equal round and reactive. Extraocular motions intact. No scleral icterus. No injection or drainage. Pallor noted ENT: Nose without bleeding, purulent drainage. Throat without erythema, tonsillar hypertrophy or exudate. Airway patent. NECK: Trachea midline. Non tender CARDIOVASCULAR: Regular rate and rhythm without murmurs, gallops, or rubs. RESPIRATORY: Clear to auscultation. Breath sounds equal bilaterally. No wheezes, rales, or rhonchi. GASTROINTESTINAL: Abdomen soft, diffusely-tender, somewhat tympanic and distended. EXTREMITIES: No edema or joint tenderness. BACK: Nontender without deformity or crepitance. No flank tenderness. NEURO: AOx3. No focal deficits SKIN: No rash or erythema of visible areas, pallor noted Initial Vital Signs Initial Vital Signs: Vital Signs Temperature 98.7 F 03/08/22 13:08 Pulse Rate 109 H 03/08/22 13:08 Respiratory Rate 18 03/08/22 13:08 Blood Pressure 124/77 03/08/22 13:08 Pulse Oximetry 100 03/08/22 13:08 Oxygen Delivery Method 03/08/22 13:08 <Bor Gupta DO - Last Filed: 03/09/22 07:14> Initial Vital Signs Initial Vital Signs: Vital Signs Temperature 98.7 F 03/08/22 13:08 Pulse Rate 109 H 03/08/22 13:08 Respiratory Rate 18 03/08/22 13:08 Blood Pressure 124/77 03/08/22 13:08 Pulse Oximetry 100 03/08/22 13:08 Oxygen Delivery Method 03/08/22 13:08 Course <Shelli Saini PA-C - Last Filed: 03/08/22 21:04> Orders Ordered: ED Orders 03/08/22 13:30 Complete Blood Count AUTO DIFF Stat Comprehensive Metabolic Panel Stat D Dimer Stat Lipase Stat Magnesium Stat Partial Thromboplastin Time Stat Test Serum,Qual Stat Prothrombin Time INR Stat Troponin & CK Cardiac Panel Stat 03/08/22 13:38 XR chest 1V Stat 03/08/22 13:41 EKG-12 Lead Stat 03/08/22 14:20 Covid-19 + FLU A/B + RSV - PCR Stat 03/08/22 15:08 CT abdomen pelvis w con Stat 03/08/22 15:12 CT angio chest PE protocol Stat Vital Signs Vital signs: Vital Signs - 8 hr 03/08/22 13:08 03/08/22 14:20 03/08/22 14:30 Temperature 98.7 F Pulse Rate 109 H 95 H 100 H Respiratory Rate 18 16 15 Blood Pressure 124/77 Pulse Oximetry 100 99 100 Oxygen Delivery Method Room Air 03/08/22 15:00 03/08/22 15:08 03/08/22 15:08 Temperature Pulse Rate 95 H 92 H Respiratory Rate 14 15 Blood Pressure 119/75 Pulse Oximetry 100 100 Oxygen Delivery Method Room Air 03/08/22 16:41 Temperature Pulse Rate 95 H Respiratory Rate 18 Blood Pressure 127/90 Pulse Oximetry 97 Oxygen Delivery Method Room Air <Bro Gupta DO - Last Filed: 03/09/22 07:14> Orders Ordered: ED Orders 03/08/22 13:30 Complete Blood Count AUTO DIFF Stat Comprehensive Metabolic Panel Stat D Dimer Stat Lipase Stat Magnesium Stat Partial Thromboplastin Time Stat Test Serum,Qual Stat Prothrombin Time INR Stat Troponin & CK Cardiac Panel Stat 03/08/22 13:38 XR chest 1V Stat 03/08/22 13:41 EKG-12 Lead Stat 03/08/22 14:20 Covid-19 + FLU A/B + RSV - PCR Stat 03/08/22 15:08 CT abdomen pelvis w con Stat 03/08/22 15:12 CT angio chest PE protocol Stat Vital Signs Vital signs: Vital Signs - 8 hr 03/08/22 13:08 03/08/22 14:20 03/08/22 14:30 Temperature 98.7 F Pulse Rate 109 H 95 H 100 H Respiratory Rate 18 16 15 Blood Pressure 124/77 Pulse Oximetry 100 99 100 Oxygen Delivery Method Room Air 03/08/22 15:00 03/08/22 15:08 03/08/22 15:08 Temperature Pulse Rate 95 H 92 H Respiratory Rate 14 15 Blood Pressure 119/75 Pulse Oximetry 100 100 Oxygen Delivery Method Room Air 03/08/22 16:41 Temperature Pulse Rate 95 H Respiratory Rate 18 Blood Pressure 127/90 Pulse Oximetry 97 Oxygen Delivery Method Room Air MDM - Chest Pain <Shelli Saini PA-C - Last Filed: 03/08/22 21:04> Lab Data Result diagrams: 03/08/22 13:30 03/08/22 13:30 Labs: Lab Results 03/08/22 03/08/22 03/08/22 Range/Units 13:30 13:30 13:30 WBC 17.1 H (4.5-11.0) X10^3/uL RBC 4.15 (4.0-5.2) X10^6/uL Hgb 9.7 L (12.0-16.0) g/dL Hct 30.6 L (36-46) % MCV 73.7 L (80-100) fL MCH 23.5 L (26-34) PG MCHC 31.8 (30-36) % RDW 19.7 H (11.6-14.8) % Plt Count 419 H (150-400) X10^3/uL Neut % (Auto) 78.0 H (50-75) % Lymph % (Auto) 14.2 L (25-40) % [place] % (Auto) 7.2 (3-14) % Eos % (Auto) 0.5 L (2-4) % Baso % (Auto) 0.1 (0-2) % Neut # (Auto) 09726 H (2223-9858) /uL Lymph # (Auto) 2400 (0994-2874) /uL [place] # (Auto) 1200 H (0-900) /uL Eos # (Auto) 100 (0-450) /uL Baso # (Auto) 0 (0-100) /uL PT 13.3 H (10.1-12.7) SECONDS INR 1.2 (0.9-1.3) APTT 23 L (26-36) SECONDS D-Dimer (<500) ng/ml Sodium 133 L (137-145) mmol/L Potassium 3.3 L (3.4-5.1) mmol/L Chloride 99 (98-107) mmol/L Carbon Dioxide 26 (22-32) mmol/L BUN 13 (7-17) mg/dL Creatinine 0.50 L (0.52-1.04) mg/dL Estimated GFR > 60 (>60) mL/min BUN/Creatinine Ratio 26.0 H (6-22) Glucose 86 (70-100) mg/dL Calcium 7.6 L (8.4-10.2) mg/dL Magnesium 1.8 (1.6-2.3) mg/dL Total Bilirubin 0.4 (0.2-1.3) mg/dL AST 16 (14-36) IU/L ALT 25 (<35) IU/L Alkaline Phosphatase 43 (38-126) U/L Total Creatine Kinase 30 (30-135) U/L CK-MB (CK-2) TNP CK-MB (CK-2) Rel Index TNP Troponin I < 0.012 (0.01-0.034) ng/mL Total Protein 7.4 (6.3-8.2) g/dL Albumin 3.3 L (3.5-5.0) g/dL Globulin 4.1 (1.7-4.1) g/dL Albumin/Globulin Ratio 0.8 L (1.0-2.8) Lipase 54 (23-300) U/L Serum , Qual (Negative) SARS-CoV-2 (PCR) (Negative) Influenza A (RT-PCR) (NEGATIVE) Influenza B (RT-PCR) (NEGATIVE) RSV (PCR) (Negative) 03/08/22 03/08/22 03/08/22 Range/Units 13:30 13:30 14:20 WBC (4.5-11.0) X10^3/uL RBC (4.0-5.2) X10^6/uL Hgb (12.0-16.0) g/dL Hct (36-46) % MCV (80-100) fL MCH (26-34) PG MCHC (30-36) % RDW (11.6-14.8) % Plt Count (150-400) X10^3/uL Neut % (Auto) (50-75) % Lymph % (Auto) (25-40) % [place] % (Auto) (3-14) % Eos % (Auto) (2-4) % Baso % (Auto) (0-2) % Neut # (Auto) (6863-9530) /uL Lymph # (Auto) (4427-4802) /uL [place] # (Auto) (0-900) /uL Eos # (Auto) (0-450) /uL Baso # (Auto) (0-100) /uL PT (10.1-12.7) SECONDS INR (0.9-1.3) APTT (26-36) SECONDS D-Dimer 1778 H (<500) ng/ml Sodium (137-145) mmol/L Potassium (3.4-5.1) mmol/L Chloride (98-107) mmol/L Carbon Dioxide (22-32) mmol/L BUN (7-17) mg/dL Creatinine (0.52-1.04) mg/dL Estimated GFR (>60) mL/min BUN/Creatinine Ratio (6-22) Glucose (70-100) mg/dL Calcium (8.4-10.2) mg/dL Magnesium (1.6-2.3) mg/dL Total Bilirubin (0.2-1.3) mg/dL AST (14-36) IU/L ALT (<35) IU/L Alkaline Phosphatase (38-126) U/L Total Creatine Kinase (30-135) U/L CK-MB (CK-2) CK-MB (CK-2) Rel Index Troponin I (0.01-0.034) ng/mL Total Protein (6.3-8.2) g/dL Albumin (3.5-5.0) g/dL Globulin (1.7-4.1) g/dL Albumin/Globulin Ratio (1.0-2.8) Lipase (23-300) U/L Serum , Qual Negative (Negative) SARS-CoV-2 (PCR) Negative (Negative) Influenza A (RT-PCR) Flu a negative (NEGATIVE) Influenza B (RT-PCR) Flu b negative (NEGATIVE) RSV (PCR) Negative (Negative) Imaging Data CT abdomen: Radiologist's Impression: PE CT abdomen:? Visualized upper abdominal solid organs appear normal in the early arterial phase of enhancement.? ? IMPRESSION:? 1. No acute process. 2. No pulmonary embolus. 3. Aberrant origin of the right subclavian artery.? This has been associated with dysphagia Abdomen pelvis CT Bones:? Unremarkable.? IMPRESSION:? 1. Resolving left colitis. 2. No significant change in peripherally enhancing non loculated pelvic ascites .? Findings may indicate infection or inflammation.? There is no loculated fluid collection present to indicated percutaneously drainable fluid collection.? 3. Normal appendix.?.? MDM Narrative Medical decision making narrative: Discussed with patient diagnosis, treatment. Several etiologies for patient's symptoms considered including: Anemia which can attributed her shortness of breath, volume depletion associated with diarrhea, new medicines she was recently prescribed. Patient's symptoms improved over duration of stay as she received fluids Her labs showed improved anemia however she still needs to continue with iron supplement therapy, low potassium noted which also can attributed patient's symptoms. Advised to start on potassium supplement. She has a close follow-up with Gastroenterology which is super helpful Findings and discharge diagnosis discussed with patient followed by verbalization of understanding Return precautions discussed with patient/family whom verbalize understanding. <Bro Chantellhimanshu, DO - Last Filed: 03/09/22 07:14> Lab Data Labs: Lab Results 03/08/22 03/08/22 03/08/22 Range/Units 13:30 13:30 13:30 WBC 17.1 H (4.5-11.0) X10^3/uL RBC 4.15 (4.0-5.2) X10^6/uL Hgb 9.7 L (12.0-16.0) g/dL Hct 30.6 L (36-46) % MCV 73.7 L (80-100) fL MCH 23.5 L (26-34) PG MCHC 31.8 (30-36) % RDW 19.7 H (11.6-14.8) % Plt Count 419 H (150-400) X10^3/uL Neut % (Auto) 78.0 H (50-75) % Lymph % (Auto) 14.2 L (25-40) % [place] % (Auto) 7.2 (3-14) % Eos % (Auto) 0.5 L (2-4) % Baso % (Auto) 0.1 (0-2) % Neut # (Auto) 97122 H (8546-3037) /uL Lymph # (Auto) 2400 (2954-7191) /uL [place] # (Auto) 1200 H (0-900) /uL Eos # (Auto) 100 (0-450) /uL Baso # (Auto) 0 (0-100) /uL PT 13.3 H (10.1-12.7) SECONDS INR 1.2 (0.9-1.3) APTT 23 L (26-36) SECONDS D-Dimer (<500) ng/ml Sodium 133 L (137-145) mmol/L Potassium 3.3 L (3.4-5.1) mmol/L Chloride 99 (98-107) mmol/L Carbon Dioxide 26 (22-32) mmol/L BUN 13 (7-17) mg/dL Creatinine 0.50 L (0.52-1.04) mg/dL Estimated GFR > 60 (>60) mL/min BUN/Creatinine Ratio 26.0 H (6-22) Glucose 86 (70-100) mg/dL Calcium 7.6 L (8.4-10.2) mg/dL Magnesium 1.8 (1.6-2.3) mg/dL Total Bilirubin 0.4 (0.2-1.3) mg/dL AST 16 (14-36) IU/L ALT 25 (<35) IU/L Alkaline Phosphatase 43 (38-126) U/L Total Creatine Kinase 30 (30-135) U/L CK-MB (CK-2) TNP CK-MB (CK-2) Rel Index TNP Troponin I < 0.012 (0.01-0.034) ng/mL Total Protein 7.4 (6.3-8.2) g/dL Albumin 3.3 L (3.5-5.0) g/dL Globulin 4.1 (1.7-4.1) g/dL Albumin/Globulin Ratio 0.8 L (1.0-2.8) Lipase 54 (23-300) U/L Serum , Qual (Negative) SARS-CoV-2 (PCR) (Negative) Influenza A (RT-PCR) (NEGATIVE) Influenza B (RT-PCR) (NEGATIVE) RSV (PCR) (Negative) 03/08/22 03/08/22 03/08/22 Range/Units 13:30 13:30 14:20 WBC (4.5-11.0) X10^3/uL RBC (4.0-5.2) X10^6/uL Hgb (12.0-16.0) g/dL Hct (36-46) % MCV (80-100) fL MCH (26-34) PG MCHC (30-36) % RDW (11.6-14.8) % Plt Count (150-400) X10^3/uL Neut % (Auto) (50-75) % Lymph % (Auto) (25-40) % [place] % (Auto) (3-14) % Eos % (Auto) (2-4) % Baso % (Auto) (0-2) % Neut # (Auto) (2307-9559) /uL Lymph # (Auto) (2825-9956) /uL [place] # (Auto) (0-900) /uL Eos # (Auto) (0-450) /uL Baso # (Auto) (0-100) /uL PT (10.1-12.7) SECONDS INR (0.9-1.3) APTT (26-36) SECONDS D-Dimer 1778 H (<500) ng/ml Sodium (137-145) mmol/L Potassium (3.4-5.1) mmol/L Chloride (98-107) mmol/L Carbon Dioxide (22-32) mmol/L BUN (7-17) mg/dL Creatinine (0.52-1.04) mg/dL Estimated GFR (>60) mL/min BUN/Creatinine Ratio (6-22) Glucose (70-100) mg/dL Calcium (8.4-10.2) mg/dL Magnesium (1.6-2.3) mg/dL Total Bilirubin (0.2-1.3) mg/dL AST (14-36) IU/L ALT (<35) IU/L Alkaline Phosphatase (38-126) U/L Total Creatine Kinase (30-135) U/L CK-MB (CK-2) CK-MB (CK-2) Rel Index Troponin I (0.01-0.034) ng/mL Total Protein (6.3-8.2) g/dL Albumin (3.5-5.0) g/dL Globulin (1.7-4.1) g/dL Albumin/Globulin Ratio (1.0-2.8) Lipase (23-300) U/L Serum , Qual Negative (Negative) SARS-CoV-2 (PCR) Negative (Negative) Influenza A (RT-PCR) Flu a negative (NEGATIVE) Influenza B (RT-PCR) Flu b negative (NEGATIVE) RSV (PCR) Negative (Negative) Discharge Plan Departure Patient Disposition: Home Clinical Impression: Increasing shortness of breath, Anemia, iron deficiency Abdominal pain Qualifiers: Abdominal location: upper abdomen, unspecified Qualified Code(s): R10.10 - Upper abdominal pain, unspecified Instructions: DI for Abdominal Pain-Adult, How to Manage Shortness of Breath Activity Restrictions/Additional Instructions: *You have been diagnosed with abdominal pain, anemia, shortness of breath, hypokalemia *What to do: *Please continue to take your regular medications as directed. New medication prescriptions sent to your pharmacy: Potassium Chloride *Please follow up with your primary care provider in 2-3 days, call for an appointment. Let them know you were seen in the Emergency Department and that we ask that you be seen in follow up. We will electronically transmit a record of today's note if your PCP is in our system Also follow with you vp corporate development *If you do not have a primary care provider please contact the [facility] Resource line at [phone]. They will ask some questions about your medical history and help get you set up with a doctor in the community. *Return to Emergency Department if you should have any new, worsening or concerning symptoms, such as [fever greater than 101 F, shaking chills, worsening pain, persistent vomiting or other bothersome symptoms] Prescriptions: New potassium chloride 10 mEq capsule, extended release 10 meq PO BID Qty: 60 0RF No Action ferrous sulfate [FeroSul] 325 mg (65 mg iron) tablet 325 mg PO DAILY Label Comments: TAKE 1 TABLET BY MOUTH ONCE DAILY oxycodone 10 mg Tablet 10 mg PO Q4H PRN (Reason: Pain, Severe (7-10)) Qty: 30 0RF prednisone 20 mg tablet See Rx Instructions .ROUTE .COMPLEX Qty: 90 0RF Rx Instructions: Take 3 pills (60 mg) orally 3x times per day for 1 day, then drop to 2x daily, then once daily until you see GI. Start 03/05 mesalamine [Lialda] 1.2 gram tablet,delayed release (DR/EC) 2.4 g PO DAILY 28 Days Qty: 60 0RF pantoprazole [Protonix] 40 mg tablet,delayed release (DR/EC) 40 mg PO DAILY Qty: 30 0RF Referrals: Miscellaneous,Doctor, MD [Primary Care Provider] - Visit Report Forms: Patient Portal/API <Bro Gupta DO - Last Filed: 03/09/22 07:14> Cosign ED Attending Cosignature Attestation: Dr Gupta Co-Sign Statement: I was available for consultation during this patient's emergency department visit. This chart is signed by myself for administrative purposes only. I did not have direct contact with this patient during this visit. They were seen independently by the APC.
[2022-03-08 15:00] VITALS: PULSE 95; RESP 14; O2SAT 100
[2022-03-08 15:08] VITALS: BP 119/75; PULSE 92; RESP 15; O2SAT 100
--- NOTE | 2022-03-08 15:08 | DI.CT.S_ITS ---
PROCEDURE: CT ABDOMEN PELVIS W CON INDICATIONS: RUQ pain TECHNIQUE: After the administration of intravenous contrast, axial sections acquired from the lung bases to the pubic symphysis. Coronal and sagittal reformats were performed. For radiation dose reduction, the following was used: automated exposure control, adjustment of mA and/or kV according to patient size. COMPARISON: [facility], CT, CT ABDOMEN PELVIS W CON, 02/28/2022, 15:31. FINDINGS: Image quality: Excellent. Lung bases: Unremarkable. Heart: No significant findings. ABDOMEN: Liver: Unremarkable. Gallbladder: Is within normal limits Biliary ducts: Unremarkable. Pancreas: Unremarkable. Spleen: Unremarkable. Adrenal Glands: Unremarkable. Kidneys and Ureters: Unremarkable. Stomach and Bowel: Stomach and small bowel are within normal limits. Appendix is normal. Colon is nondistended. Thickening of the left colon is decreased, and is now mild. Peritoneum: Small amount of free fluid within the pelvis which demonstrates peripheral enhancement without loculation. Ventral Wall: No hernias. Abdominal Nodes: No retroperitoneal or mesenteric adenopathy by size criteria. Vessels: Aorta and inferior vena cava are normal in size. PELVIS: Pelvic Organs: Unremarkable. Bladder: Unremarkable. Pelvic Nodes: No enlarged lymph nodes. Miscellaneous: No hernias are seen. Bones: Unremarkable. IMPRESSION: 1. Resolving left colitis. 2. No significant change in peripherally enhancing non loculated pelvic ascites . Findings may indicate infection or inflammation. There is no loculated fluid collection present to indicated percutaneously drainable fluid collection. 3. Normal appendix. Dictated by: Wandy Ramos M.D. on 03/08/2022 at 15:00 Approved by: Wandy Ramos M.D. on 03/08/2022 at 15:02
--- NOTE | 2022-03-08 15:12 | DI.CT.S_ITS ---
PROCEDURE: CT ANGIO CHEST PE PROTOCOL INDICATIONS: RT sided chest pain RO PE TECHNIQUE: After the administration of intravenous contrast, 2 mm thick sections acquired from the pulmonary apices to the posterior costophrenic angles. 3-dimensional maximum intensity projection (MIP) coronal and sagittal reformats were then acquired through the thorax. For radiation dose reduction, the following was used: automated exposure control, adjustment of mA and/or kV according to patient size. COMPARISON: None. FINDINGS: Image quality: Excellent. Pulmonary arteries: Pulmonary arteries are normal in size, and demonstrate no intraluminal filling defects to suggest central pulmonary embolism. Lungs and pleura: Lungs are clear. No pleural effusions or pneumothorax. Central and peripheral airways are patent. Mediastinum: Heart size is normal, without pericardial effusion. No mediastinal or hilar adenopathy. Thoracic aorta is normal in caliber and enhancement. Right subclavian artery arises from the distal aortic arch and is retroesophageal. Esophagus is normal in caliber, without hiatal hernia. Bones and chest wall: No suspicious bony lesions. Ribs and thoracic spine appear intact throughout. Thyroid gland is within normal limits. No axillary or supraclavicular adenopathy. Abdomen: Visualized upper abdominal solid organs appear normal in the early arterial phase of enhancement. IMPRESSION: 1. No acute process. 2. No pulmonary embolus. 3. Aberrant origin of the right subclavian artery. This has been associated with dysphagia. Dictated by: Wandy Ramos M.D. on 03/08/2022 at 14:57 Approved by: Wandy Ramos M.D. on 03/08/2022 at 14:59
[2022-03-08 15:29] LABS: Influenza A - CEPHEID Flu A NEGATIVE (NEGATIVE); Influenza B - CEPHEID Flu B NEGATIVE (NEGATIVE); Respiratory Syncytial Virus Negative (Negative)
[2022-03-08 15:51] LABS: COVID-19 CEPHEID 4-PLEX PCR Negative (Negative)
[2022-03-08 16:41] VITALS: BP 127/90; PULSE 95; RESP 18; O2SAT 97
== END 2022-03-08 17:10 | disposition home or self-care (01) ==
PROVIDERS: Emergency Medicine; Emergency Provider Physician Assistant Medical
DX: R06.02 Shortness of breath (principal); R10.10 Upper abdominal pain, unspecified; D50.9 Iron deficiency anemia, unspecified; R07.9 Chest pain, unspecified; R11.0 Nausea; Z20.822 Contact with and (suspected) exposure to COVID-19
CPT/HCPCS: 0241U; 36415; 71045; 71275; 74177; 80053; 82550; 83690; 83735; 84484; 84703; 85025; 85379; 85610; 85730; 93005; 99284; Q9967